=== PATIENT | male | born 1970 | race Caucasian/White ===

== ENCOUNTER 2019-04-16 08:46 | Inpatient (IN) ==
--- NOTE | 2019-04-16 09:18 | EKG Report ---
Test Performed on : 04/16/2019 08:51:40 AM Test Reason : CP Blood Pressure : / mmHG Vent. Rate : 060 BPM Atrial Rate : 060 BPM P-R Int : 178 ms QRS Dur : 110 ms QT Int : 432 ms P-R-T Axes : 040 -73 018 degrees QTc Int : 432 ms Normal sinus rhythm. Left anterior fascicular block Abnormal ECG When compared with ECG of 23-MAR-2018 01:47, No significant change was found Unconfirmed Result
--- NOTE | 2019-04-16 09:22 | PROVIDER DOCUMENTATION ---
HPI-Chest Pain - General Chief Complaint: Chest Pain Stated Complaint: CP Time Seen by Provider: 04/16/19 09:03 Source: patient Allergies/Adverse Reactions: Patient Allergies Allergy/AdvReac Type Severity Reaction Status Date / Time No Known Allergies Allergy Verified 08/14/18 15:10 Home Medications: Home Medication List Medication Instructions Recorded Confirmed Last Taken Type Alprazolam 5 mg PO BID 03/31/15 08/14/18 03/22/18 History Metoprolol [Lopressor] 100 mg PO DAILY 03/31/15 08/14/18 03/22/18 History Albuterol Sulfate [Proair Hfa] 2 ahfu INH PRN PRN 08/14/18 08/14/18 Unknown History Buspirone HCl 1 tab PO DAILY 08/14/18 08/14/18 Unknown History Cyclobenzaprine [Flexeril] 10 mg PO TID #20 tab 08/14/18 Unknown Rx Ibuprofen [Motrin] 800 mg PO Q8H PRN PRN #20 tab 08/14/18 Unknown Rx Prednisone 10 mg PO DIRECTED #9 tab 08/14/18 Unknown Rx - History of Present Illness-CP Nature of Presenting Problem: [id number] presents to the ED with c/o CP on the left side that radiates to his neck and down the left arm. He states that it began last night and has been intermittent all night. He says episodes last 2-5 min each. He states his blood pressure has been elevated. 180s-190s systolic. This morning at 0730 he took his metoprolol 100mg prior to arrival to ER. He denies any CP at this time. He does complain of shoulder pain and swelling, though denies any injury. He states that he has severe panic and anxiety. He is non-ill in appearance. No SOB noted, no diaphoresis noted, mildly hypertensive, SR noted on EKG. Location: reports: substernal, shoulder Chest Pain Radiation: reports: arms (left), neck Quality of Pain: reports: aching Severity in ED: mild Onset/Duration: last night Timing: intermittent Context/Activities at Onset: reports: none Modifying Factors: improves with: nothing Associated Symptoms: reports: denies symptoms Nitro Today/Relief: no nitro taken today Aspirin Treatment Today: no aspirin today Prior Chest Pain/Cardiac Workup: reports: angina. denies: heart attack Similar Symptoms Previously?: Yes Recently Seen Here or By Another Healthcare Provider: Yes Review of Systems - Adult - REVIEW OF SYSTEMS - ADULT Constitutional: reports: no symptoms reported. denies: chills, fever Eyes: reports: no symptoms reported Ears, Nose, Mouth & Throat: reports: no symptoms reported Cardiovascular: reports: see HPI, chest pain. denies: edema, heart murmur, irregular heart rate, palpitations, syncope Respiratory: reports: no symptoms reported. denies: cough, dyspnea on exertion, shortness of breath, wheezing Gastrointestinal: reports: no symptoms reported. denies: abdominal pain, diarrhea, vomiting Genitourinary: reports: no symptoms reported Musculoskeletal: reports: see HPI, joint pain (left shoulder) Integumentary: reports: no symptoms reported Neurological: reports: no symptoms reported Psychiatric: reports: see HPI, anxiety, panic attacks Endocrine: reports: no symptoms reported Hematologic/Lymphatic: reports: no symptoms reported Allergic/Immunologic: reports: no symptoms reported All Other Systems: Reviewed and Negative Past History - Adult - PAST MEDICAL HISTORY-ADULT Review of Records: reports: Old Records Reviewed, Nursing Assessment Review, Medications Reviewed, Social history reviewed & non-contributory. Major Childhood Illnesses: reports: denies history Cardiovascular: reports: HTN Respiratory: reports: sleep apnea Gastrointestinal: reports: denies history Obstetrical/Gynecological: reports: denies history Genitourinary: reports: denies history Musculoskeletal: reports: chronic pain Neurological: reports: denies history Psychiatric: reports: anxiety (with panic attacks), depression Endocrine/Immune: reports: denies history Other Conditions: reports: denies history - PRIOR SURGERIES/PROCEDURES Surgical/Procedure History: reports: other (disectomy) - IMMUNIZATION STATUS Childhood Immunizations: See Nurse Assessment Flu Vaccine: See Nurse Assessment - FAMILY HISTORY Family History: reviewed, not pertinent - SOCIAL HISTORY Smoking: denies Substance Use: denies Living Situation: family Physical Exam-General - PHYSICAL EXAM-ADULT Initial Vital Signs Reviewed: Yes - CONSTITUTIONAL General Appearance: appears well, alert, no apparent distress - EYES Eyes: PERRL/EOMI, pink conjunctivae - HEAD, EARS, NOSE, MOUTH & THROAT HENMT: normocephalic/atraumatic, moist mucous membranes - NECK Neck: non-tender, full range of motion, supple - RESPIRATORY Respiratory: chest non-tender, lungs clear, normal breath sounds - CARDIOVASCULAR Cardiovascular: normal peripheral pulses, regular rate, rhythm, no murmur - GASTROINTESTINAL (ABDOMEN) Abdominal Exam: normal bowel sounds, non tender, soft - LYMPHATIC Lymphatic: no adenopathy - MUSCULOSKELETAL Back Exam: normal inspection, no CVA tenderness Extremity: normal range of motion, non-tender, normal gait, pedal edema (generalized bilateral lower extremities) - SKIN Integumentary: normal color, normal turgor, warm/dry - NEUROLOGIC Neurologic: cognos report developer II-XII nml as tested, grossly normal, no motor/sensory deficits - PSYCHIATRIC Psych/Mental Status: anxious - HEART Score HEART Score: History: Slightly Suspicious HEART Score: Age: 45-65 Years HEART Score: Risk Factors for Atherosclerotic Disease: 1 or 2 Risk Factors HEART Score: Troponin: < or = Normal Limit Progress - PLAN OF CARE/RESULTS Progress/Plan/Lab Results: Vital Signs - 8 hr 04/16/19 08:59 04/16/19 10:00 04/16/19 10:38 Temperature 97.6 F Pulse Rate 61 60 58 L Respiratory Rate 17 16 17 Blood Pressure 156/99 157/91 O2 Sat by Pulse Oximetry 95 93 L 95 Laboratory Results - last 24 hr 04/16/19 04/16/19 04/16/19 09:16 09:28 09:28 WBC RBC Hgb Hct MCV MCH MCHC RDW Std Deviation Plt Count MPV Immature Gran % (Auto) Neut % (Auto) Lymph % (Auto) [place] % (Auto) Eos % (Auto) Baso % (Auto) Immature Gran # (Auto) Neut # (Auto) Lymph # (Auto) [place] # (Auto) Eos # (Auto) Baso # (Auto) Sodium 140 Potassium 4.1 Chloride 101 Carbon Dioxide 25 Anion Gap 14 BUN 9 Creatinine 0.8 Estimated GFR/1.73 m2 > 60 BUN/Creatinine Ratio 11 Glucose 160 H POC Glucose 151 H Calculated Osmolality 282 Calcium 9.1 Magnesium Total Bilirubin 1.73 H AST 44 H ALT 40 Alkaline Phosphatase 48 Creatine Kinase 82 Troponin T < 0.010 Pir-K-Tunynsngtuv Pept Total Protein 7.0 Albumin 4.3 Globulin 2.7 Albumin/Globulin Ratio 1.6 TSH Free T4 04/16/19 04/16/19 04/16/19 09:28 09:28 09:28 WBC 5.87 RBC 5.43 Hgb 18.3 H Hct 51.9 MCV 95.6 MCH 33.7 H MCHC 35.3 RDW Std Deviation 11.6 Plt Count 122 L MPV 11.5 H Immature Gran % (Auto) 0.0 Neut % (Auto) 61.8 Lymph % (Auto) 28.6 [place] % (Auto) 7.3 Eos % (Auto) 2.0 Baso % (Auto) 0.3 Immature Gran # (Auto) 0.00 Neut # (Auto) 3.62 Lymph # (Auto) 1.68 [place] # (Auto) 0.43 Eos # (Auto) 0.12 Baso # (Auto) 0.02 Sodium Potassium Chloride Carbon Dioxide Anion Gap BUN Creatinine Estimated GFR/1.73 m2 BUN/Creatinine Ratio Glucose POC Glucose Calculated Osmolality Calcium Magnesium Total Bilirubin AST ALT Alkaline Phosphatase Creatine Kinase Troponin T Iiq-Y-Xknmanqqyce Pept 90 Total Protein Albumin Globulin Albumin/Globulin Ratio TSH 1.46 Free T4 1.05 04/16/19 09:28 WBC RBC Hgb Hct MCV MCH MCHC RDW Std Deviation Plt Count MPV Immature Gran % (Auto) Neut % (Auto) Lymph % (Auto) [place] % (Auto) Eos % (Auto) Baso % (Auto) Immature Gran # (Auto) Neut # (Auto) Lymph # (Auto) [place] # (Auto) Eos # (Auto) Baso # (Auto) Sodium Potassium Chloride Carbon Dioxide Anion Gap BUN Creatinine Estimated GFR/1.73 m2 BUN/Creatinine Ratio Glucose POC Glucose Calculated Osmolality Calcium Magnesium 2.0 Total Bilirubin AST ALT Alkaline Phosphatase Creatine Kinase Troponin T Gyc-Y-Rgfizxcgyrp Pept Total Protein Albumin Globulin Albumin/Globulin Ratio TSH Free T4 Orders Category Date Time Status Saline Loc NOW Care 04/16/19 10:03 Active cxr [CHEST-2 VIEWS] [RAD] Stat Exams 04/16/19 09:05 Completed CBC WITH ELECTRONIC DIFF [HEME] Stat Lab 04/16/19 09:28 Completed CK PROFILE [SP CHEM] Stat Lab 04/16/19 09:28 Completed COMPREHENSIVE METABOLIC PANEL [CHEM] Stat Lab 04/16/19 09:28 Completed FREE T4 Stat Lab 04/16/19 09:28 Completed MAGNESIUM [CHEM] Stat Lab 04/16/19 09:28 Completed PRO B-NATRIURETIC PEPTIDE Stat Lab 04/16/19 09:28 Completed TROPONIN T Stat Lab 04/16/19 09:28 Completed TSH Stat Lab 04/16/19 09:28 Completed EKG [EKG] Stat Ther 04/16/19 09:04 Draft Echo Spec/Color Doppler Stat Ther 04/16/19 09:54 Ordered Result Diagrams: 04/16/19 09:28 04/16/19 09:28 - REASSESSMENT Reassessment #1 Time Reassessed: 10:43 Status: improving Reassessment Comment: no c/o pain, states he is feeling some better - EKG 1 Time of EKG reading by physician:: 08:51 EKG Read and Signed by:: Gilbert Mooney EKG Interpretation (*Must complete 3 of following elements*): Abnormal Rate: 60 Rhythm: NSR [place]: normal OK Interval: normal (FINDINGS: There is cardiomegaly and pulmonary vascular congestion. There is probably trace interstitial pulmonary edema. No pneumothorax or large pleural effusion. IMPRESSION: Congestive heart failure.) - XRAY 1 XRAY Study: Chest Impression: Abnormal ( FINDINGS: There is cardiomegaly and pulmonary vascular congestion. There is probably trace interstitial pulmonary edema. No pneumothorax or large pleural effusion. IMPRESSION: Congestive heart failure.), See EMR Report - CONSULTS/PCP/HOSPITALIST Notification #1 *Consult/PCP/Hospitalist*: JOSLYN Guadarrama for Dr Carlos Time Discussed: 11:41 Reason/Comments: CHF, CP Consult Disposition: Admit Departure - Departure Date of Disposition Decision: 04/16/19 Time of Disposition Decision: 11:38 DIAGNOSIS: Chest pain Qualifiers: Chest pain type: unspecified Qualified Code(s): R07.9 - Chest pain, unspecified CHF (congestive heart failure) Qualifiers: Heart failure type: unspecified Heart failure chronicity: acute Qualified Code(s): I50.9 - Heart failure, unspecified Disposition: ADMITTED INPATIENT 09 Certified Medical Emergency: Emergent Condition: Critical Additional Freetext Instructions: ED Follow Up Instructions: You have been treated by a care provider in the Emergency Department. These instructions are being provided to you so you can have an understanding of how to care for yourself upon discharge. Upon discharge from the Emergency Department, you are responsible for making arrangements for follow-up care by a physician of your choice. Take all prescribed medications as directed. Return to the Emergency Department immediately for any new or worsening symptoms. You may call the Physician Referral phone number at [phone] to obtain a list of Physicians who are taking new patients. Referrals and Follow-Ups: Neymar Broderick MD [Primary Care Provider] - - Critical Care Note This patient required my direct & personal management of CC.: No Attestation - Physician/ LAM Attestation Patient care was provided by Advanced Practice Provider:: Yes Advanced Practice Provider:: Marciano Mabry Advanced Practice Provider documentation review:: The Mid-level provider documentation, treatment plan and medical decision making was reviewed by the physician who agrees with all treatment and medical decision making by the MLP. The physician spent face to face time with patient:: No Advanced Practice Provider documentation review:: Supervising physician onsite and consulted in the evaluation and care of this patient. The physician did not have a face to face encounter with the patient.
[2019-04-16 09:46] LABS: BASO# 0.02 X1000 (0.0-0.2); BASO% 0.3 % (0.0-0.8); EOS# 0.12 X1000 (0.0-0.7); HEMATOCRIT 51.9 % (42.0-52.0); HEMOGLOBIN 18.3 g/dL (14.0-18.0); LYMPH# 1.68 X1000 (1.2-3.4); LYMPH% 28.6 % (20.5-51.1); MCH 33.7 PG (27-31); MCHC 35.3 g/dL (33-37); MCV 95.6 FL (81-99); MONO# 0.43 X1000 (0.11-0.59); MONO% 7.3 % (1.7-9.3); MPV 11.5 FL (7.4-10.4); NEUT# 3.62 X1000 (1.4-6.5); NEUT% 61.8 % (42.2-75.2); PLT 122 X1000 (130-400); RBC 5.43 XMIL (4.7-6.1); RDW 11.6 % (11.5-14.5); WBC 5.87 X1000 (4.8-10.8)
--- NOTE | 2019-04-16 09:50 | Diag Imaging Result Doc PS360 ---
CHEST-2 VIEWS - 04/16/2019 INDICATION: chest pain COMPARISON: 03/31/2015 FINDINGS: There is cardiomegaly and pulmonary vascular congestion. There is probably trace interstitial pulmonary edema. No pneumothorax or large pleural effusion. IMPRESSION: Congestive heart failure. Electronically signed by Edgar Valdez 04/16/2019 9:48 AM
[2019-04-16 10:18] LABS: AGAP 14; ALB/GLOB RATIO 1.6; ALBUMIN 4.3 g/dL (3.5-5.0); ALKALINE PHOSPHATASE 48 U/L (32-122); BUN 9 mg/dL (8-22); CALCIUM 9.1 mg/dL (8.8-10.2); CHLORIDE 101 mmol/L (98-107); CK PROFILE 82 U/L (24-204); COSMO 282; CREATININE 0.8 mg/dL (0.7-1.2); ESTIMATED GFR > 60; GLUCOSE 160 mg/dL (70-104); GOT 44 U/L (10-34); GPT 40 U/L (10-44); POTASSIUM 4.1 mmol/L (3.5-5.1); SODIUM 140 mmol/L (136-145); TCO2 25 mmol/L (25-35); TOTAL BILIRUBIN 1.73 mg/dL (0.20-1.00)
[2019-04-16 11:16] LABS: FREE T4 1.05 ng/dL (0.93-1.70); TSH 1.46 uIUmL (0.27-4.20)
[2019-04-16] MEDS ORDERED: ZOFRAN IV PRN (13:19)
--- NOTE | 2019-04-16 15:12 | HISTORY AND PHYSICAL ---
PRIMARY CARE PROVIDER: Dr. Neymar Broderick. FEED MILL SUPERVISOR: Dr. Salinas. CHIEF COMPLAINT: Intermittent chest pain and hypertension. HISTORY OF PRESENT ILLNESS: Mr. Genao is a 48-year-old obese male who carries a past medical history of anxiety and hypertension. Reports for over the past week he has had intermittent chest pain on the left side of his arm on the left side of his chest that radiated into his arm up into his neck. He took his blood pressure this morning. It was 199/116. He had feelings of being smothered on Tuesday night, and he was unable to sleep Tuesday or Tuesday. He reported 1 week of diaphoresis with exertion and a dry cough. In the evening when he is talking, he gets more dyspneic and hoarse. He did report some blurry vision this morning that has now resolved. He reports that he has had some anxiety. He has had a lot of stressors with his mom being committed for nervous breakdown. He felt like this may be anxiety, but the chest pain has continued for over a week now. He came to the ED to be assessed as two sets of cardiac enzymes are negative. We will admit him for chest pain rule out, and consult Cardiology and do a stress test in the morning REVIEW OF SYSTEMS: Twelve-point review of systems completely negative except for those mentioned in HPI. PAST MEDICAL HISTORY: 1. Anxiety. 2. Hypertension. PAST SURGICAL HISTORY: 1. Bilateral carpal tunnel release. 2. Back surgery x2. 3. Laparoscopic esophageal myotomy 14 years ago. FAMILY HISTORY: Mother and sister with congestive heart failure. ALLERGIES: No known drug allergies. HOME MEDICATIONS: Metoprolol, BuSpar, Xanax, and ProAir inhaler that he takes for shortness of breath. He has never been diagnosed with asthma. SOCIAL HISTORY: He is not . No children. He lives in [place]. 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 He had been pursuing a teaching degree, however, secondary to anxiety that has been placed on hold. PHYSICAL EXAMINATION: VITAL SIGNS: Temperature is 97.8 degrees, heart rate 60, respirations 21, blood pressure 154/89, and O2 is 97% on room air. GENERAL: Mr. Genao is an anxious-appearing 48-year-old male who is sitting up on the stretcher in no apparent distress. HEENT: Atraumatic, normocephalic. PERRL. NECK: Supple. Trachea midline. CARDIOVASCULAR: S1, S2 appreciated. No murmurs, gallops, or rubs noted. RESPIRATORY: Lung sounds clear bilaterally. Did not appreciate any crackles or wheezes. GI: Obese, soft, nontender, and nondistended. Positive bowel sounds 4 quadrants. EXTREMITIES: Negative for edema. Bilateral pedal pulses were palpable. SKIN: Warm, dry and intact. NEUROLOGIC: No focal deficits noted. DIAGNOSTIC DATA: Chest x-ray reveals congestive heart failure. EKG normal sinus rhythm at 60 beats per minute with a left anterior fascicular block when compared to February of 2018. There was no significant change found. LABORATORY DATA: White count 5, hemoglobin and hematocrit 18 and 51, and platelet count is 122,000. Sodium 140, potassium 4.1, BUN 9, and creatinine 0.8. Blood glucose is 160. Mag is 2.0. T bilirubin 1.73, AST 44, ALT 40. Two sets of troponin's are less than 0.010. ProBNP is 90. ASSESSMENT AND PLAN: 1. Chest pain rule out. We will continue to trend his cardiac enzymes. Two sets have been negative. We will place him on a healthy heart diet. Check his lipid profile. Check hemoglobin A1c. Echocardiogram. Consult Cardiology, NPO after midnight. Do a stress test in the morning. Continue on full dose aspirin. Start a statin. 2. Hyperglycemia. Will check hemoglobin A1c. 3. Anxiety. We will continue his home Klonopin. 4. Hypertension. We will continue his home metoprolol. 5. Transaminitis. We will do an abdominal ultrasound of his right upper quadrant. The patient was complaining of left upper quadrant bubbly sensation. Did not complain of any right upper quadrant pain. 6. Further recommendation to follow physician evaluation, laboratory and diagnostic data. Dictated by JOSLYN Oliveira for Justice Carlos MD cc: MD Neymar Lowery MD Ashish K. Basu, MD MTDD
--- NOTE | 2019-04-16 15:38 | HISTORY AND PHYSICAL ---
ADDENDUM TO HISTORY AND PHYSICAL: SUBJECTIVE: Patient complaining of shortness of breath and to some degree chest tightness. Workup in the ER was consistent with some elevated blood pressure. EKG was unremarkable. His physical exam is pretty unremarkable apart from being obese. He is doing okay otherwise. PHYSICAL EXAMINATION: Cardiac regular rate and rhythm. Breath sounds are clear. ASSESSMENT/PLAN: We are going to rule out serial enzymes pursue echo, stress test, and follow. Also ordered a right upper quadrant he is obese and at risk for failure. This is a [id number] encounter with Chiara Collier. cc: Justice Carlos MD
[2019-04-16] MEDS: LOVENOX SUBQ SCH (15:46)
[2019-04-16] MEDS: KLONOPIN PO SCH (20:53)
[2019-04-16] MEDS: TYLENOL PO PRN (20:53)
--- NOTE | 2019-04-16 23:42 | ECHO REPORT ---
ORDER DATE: 04/16/2019 MEASUREMENTS: Left ventricular end-diastolic diameter 5.2, end systolic diameter 3.3, septal thickness 1.1, posterior wall thickness 1.1, aortic root 3.6, left atrium 4.6. SUMMARY: 1. Technically difficult study due to limited acoustic window quality. Intravenous echo contrast agent Optison was utilized to enhance endocardial definition. 2. Aortic valve is trileaflet and opens normally on 2-dimensional images. Peak gradient across aortic valve is less than 10 mmHg. Mitral and tricuspid valves are without evidence of structural abnormality while pulmonic valve was not well demonstrated. There is trace tricuspid regurgitation. Aortic root is normal in size. 3. Normal left ventricular dimensions suggested on 2-dimensional images. Estimated left ejection fraction appears to be approximately 65%. No regional wall motion abnormalities are evident. Left atrium is mildly enlarged. Right atrium, right ventricle are normal in size with normal right ventricular systolic function. 4. No pericardial effusion. 5. Appearance of inferior vena cava suggests normal central venous pressure. cc: Alvaro Hull MD
[2019-04-17] MEDS: NS 1,000 ML IV SCH ×2 (00:32→19:15)
[2019-04-17] MEDS: PRILOSEC PO SCH (06:10)
[2019-04-17 07:32] LABS: BASO# 0.02 X1000 (0.0-0.2); BASO% 0.4 % (0.0-0.8); EOS# 0.11 X1000 (0.0-0.7); HEMATOCRIT 50.2 % (42.0-52.0); HEMOGLOBIN 17.3 g/dL (14.0-18.0); LYMPH# 2.32 X1000 (1.2-3.4); LYMPH% 42.3 % (20.5-51.1); MCH 33.4 PG (27-31); MCHC 34.5 g/dL (33-37); MCV 96.9 FL (81-99); MONO% 7.3 % (1.7-9.3); MPV 11.4 FL (7.4-10.4); NEUT# 2.64 X1000 (1.4-6.5); PLT 121 X1000 (130-400); RBC 5.18 XMIL (4.7-6.1); RDW 11.6 % (11.5-14.5); WBC 5.49 X1000 (4.8-10.8)
--- NOTE | 2019-04-17 07:45 | Diag Imaging Result Doc PS360 ---
US GB < RUQ (LIMITED) - 04/17/2019 INDICATION: elevated lfts TECHNIQUE: COMPARISON: None FINDINGS: There is severe diffuse fatty change of the liver. No liver masses. The gallbladder, pancreas, and right kidney are normal. Common bile duct measures 5 mm. Aorta, IVC, and main portal vein are patent. No free fluid. IMPRESSION: Severe hepatic steatosis. Electronically signed by Edgar Valdez 04/17/2019 7:42 AM
[2019-04-17 07:50] LABS: AGAP 11; ALB/GLOB RATIO 1.4; ALBUMIN 3.9 g/dL (3.5-5.0); ALKALINE PHOSPHATASE 43 U/L (32-122); BUN 11 mg/dL (8-22); CALCIUM 8.8 mg/dL (8.8-10.2); CHLORIDE 102 mmol/L (98-107); CHOLESTEROL 159 mg/dL (0-200); COSMO 274; CREATININE 0.7 mg/dL (0.7-1.2); ESTIMATED GFR > 60; GLUCOSE 114 mg/dL (70-104); GOT 41 U/L (10-34); GPT 35 U/L (10-44); HDL 30 mg/dL (35-55); LDL 93 mg/dL; MAGNESIUM 2.2 mg/dL (1.5-2.7); POTASSIUM 3.2 mmol/L (3.5-5.1); SODIUM 137 mmol/L (136-145); TCO2 24 mmol/L (25-35); TOTAL BILIRUBIN 1.78 mg/dL (0.20-1.00); TOTAL PROTEIN 6.6 g/dL (6.3-8.3); TRIGLYCERIDES 181 mg/dL (39-160); VLDL 36 mg/dL
[2019-04-17] MEDS ORDERED: LEXISCAN ONE (08:08)
--- NOTE | 2019-04-17 09:47 | EKG Report ---
Test Performed on : 04/17/2019 09:38:36 AM Test Reason : cp Blood Pressure : / mmHG Vent. Rate : 077 BPM Atrial Rate : 077 BPM P-R Int : 176 ms QRS Dur : 118 ms QT Int : 428 ms P-R-T Axes : 060 -66 032 degrees QTc Int : 484 ms Normal sinus rhythm. Left anterior fascicular block Prolonged QT Abnormal ECG When compared with ECG of 16-APR-2019 08:51, (Unconfirmed) No significant change was found Confirmed by Fany JOYNER, Vincent Miller ([id number]) on 04/17/2019 5:31:38 PM
[2019-04-17] MEDS: TYLENOL PO PRN (09:58)
[2019-04-17] MEDS: ASPIRIN PO SCH (09:58)
[2019-04-17] MEDS: BUSPAR PO SCH (09:58)
[2019-04-17] MEDS: LOPRESSOR PO SCH (09:58)
[2019-04-17] MEDS: KLONOPIN PO SCH ×2 (09:58→20:43)
[2019-04-17] MEDS ORDERED: KLOR-CON PO ONE (10:05)
--- NOTE | 2019-04-17 13:25 | PROGRESS NOTE ---
DATE: 04/17/2019 SUBJECTIVE: He still had a little bit of chest pain this morning after the stress test, but that seems better now. OBJECTIVE: Blood pressure 144/81, heart rate 63, respiratory rate of 20, and temperature 97.8 degrees.Cardiovascular: Regular rate and rhythm. Pulmonary: Bilateral breath sounds clear to auscultation. GI: Soft, nontender, and nondistended. Bowel sounds are positive. LABORATORY: White count 5, hemoglobin and hematocrit 17 and 50, and platelets 121,000. Potassium 3.2. T bilirubin 1.7. PROBLEM LIST: 1. Atypical chest pain. We are waiting on stress test results. Cardiology is following, and I appreciate their input. Echo was pretty normal with EF 65%. No wall motion abnormality, and he is ruled out. 2. Hyperglycemia. He does not officially have diabetes, but he may have metabolic syndrome. 3. Elevated liver enzymes, looks like it is related to hepatic steatohepatitis. He seems to be stable from that standpoint. DISPOSITION: I anticipate if his stress test is negative, he can likely go home here shortly hopefully. cc: Justice Carlos MD
--- NOTE | 2019-04-17 14:13 | CONSULTATION ---
DATE OF CONSULTATION: 04/17/2019 IMPRESSION: 1. Chest discomfort, predominantly atypical for myocardial ischemia. No evidence of acute myocardial insult or cardiac enzymes. 2. Previous negative coronary angiography last year for similar chest discomfort. 3. Hypertension. 4. Morbid obesity. 5. Anxiety disorder. RECOMMENDATIONS: 1. Follow up Lexiscan sestamibi study already performed. 2. Weight loss strongly encouraged and advised. 3. Suspect obstructive sleep apnea. Patient would benefit from screening for sleep apnea. This was discussed with him. HISTORY OF PRESENT ILLNESS: This 48-year-old white male with past history of morbid obesity, hypertension and anxiety as well as previous negative coronary angiography last year, was admitted through the emergency room for evaluation of chest pain. He relates that yesterday morning, he was still in bed early when he started to feel some tightness in the left lateral chest. His blood pressure elevated. Symptoms lasted about 15 to 20 minutes. He had some brief recurrences of chest tightness throughout the day yesterday. He also describes difficulty with exertional shortness of breath and diaphoresis. He came to the emergency room and was admitted. Serial troponins have been normal. He is a nonsmoker. He has not required treatment for hypercholesterolemia. He does have anxiety disorder. He also has history of prominent snoring. He is not aware of sleep apnea. PAST MEDICAL HISTORY: 1. Morbid obesity. 2. Hypertension. 3. Previous negative coronary angiography last year. 4. Anxiety disorder. PAST SURGICAL HISTORY: Includes bilateral carpal tunnel release, 2 previous back surgeries, and laparoscopic esophageal myotomy 14 years ago. ALLERGIES: He has no known drug allergies. MEDICATIONS PRIOR TO ADMISSION: As listed. 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 He does not smoke. FAMILY HISTORY: Negative for premature coronary disease. REVIEW OF SYSTEMS: Pulmonary: Negative beyond history of present illness. Constitutional: Negative beyond history of present illness. Gastrointestinal: Negative beyond history of present illness. Remainder of review of systems negative/noncontributory beyond history of present illness with 14 total systems reviewed. PHYSICAL EXAMINATION: General: This is a morbidly obese adult male, in no distress on room air. Vital signs: Blood pressure 144/81, heart rate 63 and regular. Oxygen saturation 95% on room air. HEENT: Extraocular movements appear intact. Mucous membranes are moist. Neck: Supple without jugular venous distention. There are no carotid bruits. Chest: Clear to auscultation bilaterally. Cardiac: Regular rate and rhythm without appreciable murmur or gallop. Abdomen: Soft. Bowel sounds are normal. Extremities: Without edema. Neurologic: Reveals him to be alert and fully oriented. Speech is fluent. He moves all 4 extremities equally well. LABORATORY DATA: Includes a white blood cell count of 5.49, hematocrit 50.2, hemoglobin 17.3, platelet count 121,000. Sodium 137, potassium 3.2, chloride 102, carbon dioxide 24, BUN 11, creatinine 0.7, glucose 114. Initial troponin less than 0.01. Followup troponin less 0.01. Pro B-natriuretic peptide level 90. A 12 lead EKG demonstrates normal sinus rhythm and left anterior fascicular block. cc: Alvaro Hull MD
--- NOTE | 2019-04-17 15:40 | Diag Imaging Result Document ---
PROCEDURE NAME: MYOCARDIAL PERF SCAN, STR/REST - 04/17/2019 PROCEDURE: Lexiscan Cardiolite stress test. DESCRIPTION OF PROCEDURE IN DETAIL: Lexiscan was infused per standard protocol. There was no chest pain. Stress electrocardiogram was negative for ischemia. Following Lexiscan infusion, Cardiolite was injected. Total of 15.3 mCi of Cardiolite was injected for the rest phase; 45.8 mCi of Cardiolite was injected for the stress phase. Images revealed significant diaphragmatic and chest wall attenuation. Normal left ventricular cavity size. There is low-grade reversible defect in the inferior wall with normal wall motion. However, this is likely to represent attenuation defect, low probability of ischemia. There is low-grade reversibility. Left ventricular ejection fraction by gated SPECT was 73%. CONCLUSIONS: 1. No chest pain. 2. Negative Lexiscan stress electrocardiogram. 3. Myocardial perfusion images revealed low-grade reversible perfusion defect in the inferior wall associated with significant diaphragmatic, as well as chest wall attenuation. This could represent attenuation defect. Left ventricular ejection fraction by gated SPECT was 73%. Wall motion was normal. cc: Aaron Salinas MD
[2019-04-17] MEDS: LOVENOX SUBQ SCH (19:14)
[2019-04-18] MEDS: NS 1,000 ML IV SCH ×2 (03:34→08:45)
[2019-04-18] MEDS: PRILOSEC PO SCH (06:21)
[2019-04-18] MEDS: ASPIRIN PO SCH (08:47)
[2019-04-18] MEDS: BUSPAR PO SCH (08:47)
[2019-04-18] MEDS: LOPRESSOR PO SCH (08:47)
[2019-04-18] MEDS: KLONOPIN PO SCH (08:47)
[2019-04-18 11:00] VITALS: BP 160/94
[2019-04-18] MEDS ORDERED: COZAAR PO SCH (12:30)
[2019-04-18] MEDS ORDERED: PNEUMOVAX 23 IM ONE (14:43)
[2019-04-18] MEDS: LOVENOX SUBQ SCH (14:47)
--- NOTE | 2019-04-18 20:50 | DISCHARGE SUMMARY ---
ADMISSION DATE: 04/16/2019 DISCHARGE DATE: 04/18/2019 DISCHARGE DIAGNOSES: 1. Atypical chest pain, possibly gastroesophageal reflux/gastritis. 2. Hepatic steatosis. 3. Hyperglycemia with possible metabolic syndrome. 4. Hypertension. CONSULTATIONS: Cardiology, Dr. Alvaro Hull. HISTORY OF PRESENT ILLNESS: Briefly, this is a 48-year-old male with a history of anxiety and depression, presenting with chest pain. He was placed on observation for chest pain. Cardiology was consulted. He had gotten a stress test which showed a questionable low-grade reversible defect which may be diaphragmatic attenuation. Dr. Hull reviewed the images and felt that it was likely diaphragmatic attenuation. He had an echo done too, which showed an EF of 65% with no wall motion abnormalities. He had an abdominal ultrasound which showed steatohepatitis, but the gallbladder was intact. He was felt stable for discharge. After review, we adjusted his blood pressure medicine. He was placed on losartan. DISCHARGE MEDICATIONS: Buspirone 10 daily, Klonopin 2 b.i.d., Lopressor 100 daily, ProAir, Cozaar 25 daily. DISCHARGE CONDITION: Stable. FOLLOWUP: Follow up with his PCP, Dr. Neymar Broderick, for blood pressure check. Follow up with Dr. Hull. If persistent issues, he may need a GI consult. cc: Justice Carlos MD
== END 2019-04-18 15:28 | disposition home or self-care (01) | DRG 392 ==
LOC: ED 08:46 → 3N 12:20
PROVIDERS: ATTEND Internal Medicine
CPT/HCPCS: 71020; 71046; 76705; 78452; 80053; 80061; 82550; 82948; 83036; 83735; 83880; 84439; 84443; 84484; 85025; 90732; 93005; 93010; 93017; 93306; 94760; 94761; 99285; A9270; A9500; C8929; J1650; J2785; J7030; Q9957; XXXXX

== ENCOUNTER 2019-09-24 11:07 | Inpatient (IN) ==
[2019-09-24] MEDS ORDERED: ZOFRAN IV ONE (11:22)
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
--- NOTE | 2019-09-24 11:42 | EKG Report ---
Test Performed on : 09/24/2019 11:24:04 AM Test Reason : SOB Blood Pressure : / mmHG Vent. Rate : 074 BPM Atrial Rate : 074 BPM P-R Int : 182 ms QRS Dur : 106 ms QT Int : 394 ms P-R-T Axes : 062 -39 042 degrees QTc Int : 437 ms Normal sinus rhythm. Left axis deviation Abnormal ECG When compared with ECG of 17-MAY-2019 17:06, Sinus rhythm. has replaced Atrial flutter. Vent. rate has decreased BY 43 BPM Borderline criteria for Anterior infarct are no longer present ST no longer depressed in Inferior leads ST no longer depressed in Anterolateral leads Unconfirmed Result
[2019-09-24 11:52] LABS: BASO# 0.04 X1000 (0.0-0.2); BASO% 0.8 % (0.0-0.8); EOS# 0.19 X1000 (0.0-0.7); HEMATOCRIT 46.2 % (42.0-52.0); HEMOGLOBIN 15.3 g/dL (14.0-18.0); IMM GRAN# 0.03 X1000 (0.0-0.04); IMM GRAN% 0.6 % (0.0-0.5); LYMPH# 1.35 X1000 (1.2-3.4); LYMPH% 28.4 % (20.5-51.1); MCH 34.3 PG (27-31); MCHC 33.1 g/dL (33-37); MCV 103.6 FL (81-99); MONO# 0.69 X1000 (0.11-0.59); MONO% 14.5 % (1.7-9.3); MPV 10.3 FL (7.4-10.4); NEUT# 2.45 X1000 (1.4-6.5); NEUT% 51.7 % (42.2-75.2); PLT 138 X1000 (130-400); RBC 4.46 XMIL (4.7-6.1); RDW 12.8 % (11.5-14.5); WBC 4.75 X1000 (4.8-10.8)
--- NOTE | 2019-09-24 12:04 | Diag Imaging Result Doc PS360 ---
CHEST-2 VIEWS - 09/24/2019 INDICATION: cough, SOB COMPARISON: 05/17/2019 FINDINGS: There may be pneumomediastinum. There is cardiomegaly and severe pulmonary vascular congestion. There is hazy infiltrate throughout the left lung base. There is a trace left pleural effusion. There are two displaced rib fractures at the lateral left lung base inferiorly. IMPRESSION: 1. Displaced rib fractures at the lateral left lung base. 2. Left basilar infiltrate compatible with pneumonia. Trace left pleural effusion. 3. Possible pneumomediastinum. 4. Consider a chest CT for further evaluation. Electronically signed by Edgar Valdez 09/24/2019 12:02 PM
[2019-09-24 12:17] LABS: AGAP 11; ALB/GLOB RATIO 1.4; ALBUMIN 3.6 g/dL (3.5-5.0); ALKALINE PHOSPHATASE 52 U/L (32-122); BUN 9 mg/dL (8-22); CALCIUM 8.8 mg/dL (8.8-10.2); CHLORIDE 103 mmol/L (98-107); COSMO 281; CREATININE 0.7 mg/dL (0.7-1.2); ESTIMATED GFR > 60; GLUCOSE 121 mg/dL (70-104); GOT 68 U/L (10-34); GPT 29 U/L (10-44); POTASSIUM 4.5 mmol/L (3.5-5.1); SODIUM 141 mmol/L (136-145); TCO2 27 mmol/L (25-35); TOTAL BILIRUBIN 1.06 mg/dL (0.20-1.00); TOTAL PROTEIN 6.2 g/dL (6.3-8.3)
[2019-09-24] MEDS ORDERED: NS 1,000 ML IV ONE (12:22)
[2019-09-24] MEDS ORDERED: ROCEPHIN 2 GM in NS 50 ML IV ONE (12:22)
[2019-09-24] MEDS ORDERED: ZITHROMAX 500 MG/NS 500 MG/250 ML IVPB IV ONE (12:22)
[2019-09-24] MEDS ORDERED: DUONEB (A & A) INH ONE (13:12)
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
[2019-09-24] MEDS ORDERED: TYLENOL PO PRN (16:14)
[2019-09-24] MEDS ORDERED: BENTYL PO PRN (17:45)
[2019-09-24] MEDS ORDERED: ATARAX PO PRN (17:45)
[2019-09-24] MEDS ORDERED: SALINE LOCK IV FLUID XX ONE (17:45)
[2019-09-24] MEDS ORDERED: ROBAXIN PO PRN (17:45)
[2019-09-24] MEDS: M.V.I.-12 10 ML, FOLIC ACID 1 MG, MAGNESIUM SULFATE 1 GM, THIAMINE 100 MG in NS 1,000 ML IV SCH (18:22)
[2019-09-24] MEDS: DUONEB (A & A) INH SCH ×2 (19:16→23:03)
[2019-09-24] MEDS ORDERED: KLONOPIN PO SCH (21:00)
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
[2019-09-24] MEDS: LIBRIUM PO SCH (21:38)
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
[2019-09-25] MEDS: KLONOPIN PO SCH ×3 (01:06→19:59)
[2019-09-25] MEDS: DUONEB (A & A) INH SCH ×6 (03:35→23:10)
[2019-09-25 05:53] LABS: BASO# 0.02 X1000 (0.0-0.2); BASO% 0.6 % (0.0-0.8); EOS# 0.21 X1000 (0.0-0.7); EOS% 5.9 % (0.0-10.0); HEMATOCRIT 42.8 % (42.0-52.0); HEMOGLOBIN 13.9 g/dL (14.0-18.0); LYMPH# 1.09 X1000 (1.2-3.4); LYMPH% 30.9 % (20.5-51.1); MCH 34.4 PG (27-31); MCHC 32.5 g/dL (33-37); MCV 105.9 FL (81-99); MONO# 0.49 X1000 (0.11-0.59); MONO% 13.9 % (1.7-9.3); MPV 10.1 FL (7.4-10.4); NEUT# 1.72 X1000 (1.4-6.5); NEUT% 48.7 % (42.2-75.2); PLT 131 X1000 (130-400); RBC 4.04 XMIL (4.7-6.1); RDW 13.3 % (11.5-14.5); WBC 3.53 X1000 (4.8-10.8)
[2019-09-25 06:29] LABS: AGAP 11; ALB/GLOB RATIO 1.2; ALBUMIN 3.4 g/dL (3.5-5.0); ALKALINE PHOSPHATASE 48 U/L (32-122); BUN 9 mg/dL (8-22); CALCIUM 8.1 mg/dL (8.8-10.2); CHLORIDE 104 mmol/L (98-107); COSMO 280; CREATININE 0.6 mg/dL (0.7-1.2); ESTIMATED GFR > 60; GLUCOSE 137 mg/dL (70-104); GOT 64 U/L (10-34); GPT 28 U/L (10-44); POTASSIUM 3.8 mmol/L (3.5-5.1); SODIUM 140 mmol/L (136-145); TCO2 25 mmol/L (25-35); TOTAL BILIRUBIN 0.87 mg/dL (0.20-1.00); TOTAL PROTEIN 6.3 g/dL (6.3-8.3)
[2019-09-25] MEDS: LIBRIUM PO SCH ×4 (06:47→18:28)
--- NOTE | 2019-09-25 07:47 | Diag Imaging Result Doc PS360 ---
CHEST-2 VIEWS - 09/25/2019 INDICATION: Pneumonia, ptx, pleural effusion COMPARISON: 09/24/2019 FINDINGS: There is slight worsening infiltrate in the left lung base. There are no other changes from prior. IMPRESSION: Worsening infiltrate in the left lung base. Electronically signed by Edgar Valdez 09/25/2019 7:45 AM
[2019-09-25] MEDS: BUSPAR PO SCH (08:37)
[2019-09-25] MEDS: LOPRESSOR PO SCH (08:37)
[2019-09-25] MEDS: COZAAR PO SCH (08:37)
[2019-09-25] MEDS: EFFEXOR PO SCH (08:37)
[2019-09-25] MEDS ORDERED: VANCOMYCIN IV PER PHARMACY MISC SCH (09:00)
[2019-09-25] MEDS: MAXIPIME 1 GM in NS 50 ML IV SCH ×2 (09:42→17:30)
[2019-09-25] MEDS: VANCOMYCIN 2,000 MG in NS 500 ML IV SCH ×2 (11:02→21:55)
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
[2019-09-25] MEDS ORDERED: ROCEPHIN 1 GM in NS 50 ML IV SCH (13:00)
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
--- NOTE | 2019-09-25 15:06 | ED EKG INTERP ---
This chart was entered by Belle Gaines Scribe, acting as scribe for Gilbert Mooney MD. EKG Interpretation - EKG Time of EKG reading by physician:: 11:24 EKG Read and Signed by:: Gilbert Mooney EKG Interpretation (*Must complete 3 of following elements*): Abnormal Rate: 74 Rhythm: NSR [place]: left QRS: normal Attestation - Physician/ LAM Attestation Patient care was provided by Advanced Practice Provider:: No The physician spent face to face time with patient:: Yes Advanced Practice Provider documentation review:: Supervising physician onsite and consulted in the evaluation and care of this patient. The physician did have a face to face encounter with the patient. This chart was documented by the indicated scribe, (B[place]aines Scribe) and accurately reflects the services I performed and decisions made by me, Gilbert Mooney MD, as attested by the provider's signature.
[2019-09-25] MEDS: MORPHINE IV PRN ×3 (15:39→23:29)
[2019-09-25 16:09] LABS: UR AMPHETAMINES QUAL NONE DETECTED (NONE DETECT); UR BARBITUATES QUAL NONE DETECTED (NONE DETECT); UR BENZODIAZEPIN QUAL PRESUMPTIVE POSITIVE (NONE DETECT); UR CANNABINOIDS QUAL PRESUMPTIVE POSITIVE (NONE DETECT); UR COCAINE QUAL NONE DETECTED (NONE DETECT); UR METHADONE QUAL NONE DETECTED (NONE DETECT); UR OPIATES QUAL NONE DETECTED (NONE DETECT); UR OXYCODONE QUAL NONE DETECTED (NONE DETECT); UR PCP QUAL NONE DETECTED (NONE DETECT)
[2019-09-25] MEDS: M.V.I.-12 10 ML, FOLIC ACID 1 MG, MAGNESIUM SULFATE 1 GM, THIAMINE 100 MG in NS 1,000 ML IV SCH (18:27)
[2019-09-26] MEDS: LIBRIUM PO SCH ×3 (02:35→09:22)
[2019-09-26] MEDS: MAXIPIME 1 GM in NS 50 ML IV SCH ×3 (02:35→17:04)
[2019-09-26] MEDS: MORPHINE IV PRN ×2 (02:35→07:02)
[2019-09-26] MEDS: DUONEB (A & A) INH SCH ×5 (03:42→19:58)
[2019-09-26 06:15] LABS: BASO# 0.02 X1000 (0.0-0.2); BASO% 0.6 % (0.0-0.8); EOS# 0.15 X1000 (0.0-0.7); EOS% 4.5 % (0.0-10.0); HEMATOCRIT 42.5 % (42.0-52.0); HEMOGLOBIN 13.6 g/dL (14.0-18.0); LYMPH# 1.03 X1000 (1.2-3.4); LYMPH% 31.2 % (20.5-51.1); MCH 34.4 PG (27-31); MCV 107.6 FL (81-99); MONO# 0.41 X1000 (0.11-0.59); MONO% 12.4 % (1.7-9.3); MPV 10.4 FL (7.4-10.4); NEUT# 1.69 X1000 (1.4-6.5); NEUT% 51.3 % (42.2-75.2); PLT 138 X1000 (130-400); RBC 3.95 XMIL (4.7-6.1); RDW 13.1 % (11.5-14.5)
[2019-09-26 06:28] LABS: AGAP 10; ALB/GLOB RATIO 1.2; ALBUMIN 3.3 g/dL (3.5-5.0); ALKALINE PHOSPHATASE 50 U/L (32-122); BUN 6 mg/dL (8-22); CALCIUM 8.3 mg/dL (8.8-10.2); CHLORIDE 103 mmol/L (98-107); COSMO 277; CREATININE 0.6 mg/dL (0.7-1.2); ESTIMATED GFR > 60; GLUCOSE 124 mg/dL (70-104); GOT 101 U/L (10-34); GPT 34 U/L (10-44); POTASSIUM 4.5 mmol/L (3.5-5.1); SODIUM 139 mmol/L (136-145); TCO2 26 mmol/L (25-35); TOTAL BILIRUBIN 0.86 mg/dL (0.20-1.00); TOTAL PROTEIN 6.1 g/dL (6.3-8.3)
[2019-09-26 06:43] LABS: EOS 6 % (1-10); LYMPHS 24 % (21-51); MONO 14 % (1-9); SEGS 54 % (42-75)
--- NOTE | 2019-09-26 08:20 | Diag Imaging Result Doc PS360 ---
EXAM: CHEST-2 VIEWS HISTORY: hypoxia TECHNIQUE: Two views COMPARISON: 09/25/2019 FINDINGS: The heart remains enlarged. There is a small left pleural effusion with left basilar atelectasis and/or infiltrates. There is also mild pulmonary edema. There are several left lower rib fractures. No pneumothorax. The overall appearance of the chest is similar to the prior exam. IMPRESSION: Stable chest Electronically signed by Vernon Acosta 09/26/2019 8:18 AM
[2019-09-26] MEDS: KLONOPIN PO SCH ×2 (08:31→21:22)
[2019-09-26] MEDS: LOPRESSOR PO SCH (08:31)
[2019-09-26] MEDS: COZAAR PO SCH (08:31)
[2019-09-26] MEDS: BUSPAR PO SCH (08:31)
[2019-09-26] MEDS: EFFEXOR PO SCH (08:32)
[2019-09-26] MEDS: ATIVAN IV PRN ×4 (08:39→23:17)
[2019-09-26] MEDS: VANCOMYCIN 2,000 MG in NS 500 ML IV SCH (10:21)
[2019-09-26] MEDS: NORCO-7.5 PO PRN ×3 (12:26→23:49)
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
[2019-09-26] MEDS: DOXYCYCLINE PO SCH (21:22)
[2019-09-26] MEDS: AUGMENTIN PO SCH (21:22)
[2019-09-27] MEDS: ATIVAN IV PRN ×3 (04:26→13:25)
[2019-09-27] MEDS: DUONEB (A & A) INH SCH ×3 (04:54→07:51)
[2019-09-27 07:39] LABS: BASO# 0.04 X1000 (0.0-0.2); BASO% 1.1 % (0.0-0.8); EOS# 0.21 X1000 (0.0-0.7); HEMATOCRIT 43.1 % (42.0-52.0); HEMOGLOBIN 14.1 g/dL (14.0-18.0); LYMPH# 1.02 X1000 (1.2-3.4); MCH 34.7 PG (27-31); MCHC 32.7 g/dL (33-37); MCV 106.2 FL (81-99); MONO# 0.38 X1000 (0.11-0.59); MONO% 10.8 % (1.7-9.3); MPV 10.7 FL (7.4-10.4); NEUT# 1.87 X1000 (1.4-6.5); NEUT% 53.1 % (42.2-75.2); PLT 155 X1000 (130-400); RBC 4.06 XMIL (4.7-6.1); RDW 12.8 % (11.5-14.5); WBC 3.52 X1000 (4.8-10.8)
[2019-09-27 07:51] LABS: AGAP 13; ALB/GLOB RATIO 1.4; ALBUMIN 3.8 g/dL (3.5-5.0); ALKALINE PHOSPHATASE 57 U/L (32-122); BUN 6 mg/dL (8-22); CALCIUM 8.7 mg/dL (8.8-10.2); CHLORIDE 100 mmol/L (98-107); COSMO 278; CREATININE 0.6 mg/dL (0.7-1.2); ESTIMATED GFR > 60; GLUCOSE 121 mg/dL (70-104); GOT 105 U/L (10-34); GPT 47 U/L (10-44); POTASSIUM 4.1 mmol/L (3.5-5.1); SODIUM 140 mmol/L (136-145); TCO2 27 mmol/L (25-35); TOTAL BILIRUBIN 0.89 mg/dL (0.20-1.00); TOTAL PROTEIN 6.6 g/dL (6.3-8.3)
[2019-09-27] MEDS: NORCO-7.5 PO PRN ×2 (08:39→14:31)
[2019-09-27 08:59] LABS: PHOSPHORUS 3.7 mg/dL (2.7-4.5)
[2019-09-27] MEDS ORDERED: THERA M PLUS PO SCH (09:00)
[2019-09-27] MEDS ORDERED: VITAMIN B-1 PO SCH (09:00)
--- NOTE | 2019-09-27 09:12 | EKG Report ---
Test Performed on : 09/27/2019 08:58:33 AM Test Reason : Vtach Blood Pressure : / mmHG Vent. Rate : 083 BPM Atrial Rate : 083 BPM P-R Int : 182 ms QRS Dur : 112 ms QT Int : 380 ms P-R-T Axes : 047 -26 035 degrees QTc Int : 446 ms Normal sinus rhythm. Normal ECG When compared with ECG of 24-SEP-2019 11:24, (Unconfirmed) No significant change was found Confirmed by Santana JOYNER, Sudhir ([id number]) on 09/28/2019 11:35:03 AM
[2019-09-27] MEDS: AUGMENTIN PO SCH (09:14)
[2019-09-27] MEDS: DOXYCYCLINE PO SCH (09:14)
[2019-09-27] MEDS: BUSPAR PO SCH (09:14)
[2019-09-27] MEDS: COZAAR PO SCH (09:15)
[2019-09-27] MEDS: LOPRESSOR PO SCH (09:16)
[2019-09-27] MEDS: EFFEXOR PO SCH (09:17)
[2019-09-27] MEDS: KLONOPIN PO SCH (09:27)
[2019-09-27 11:26] VITALS: BP 135/84
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
== END 2019-09-27 16:16 | disposition home or self-care (01) | DRG 194 ==
LOC: ED 11:07 → EDIPHOLD 16:30 → 2N 09-25 18:46 → 4N 09-26 22:58
PROVIDERS: ATTEND Internal Medicine

== ENCOUNTER 2019-12-10 10:23 | Inpatient (IN) ==
[2019-12-10] MEDS ORDERED: ASPIRIN PO ONE (10:37)
[2019-12-10] MEDS ORDERED: M.V.I.-12 10 ML, FOLIC ACID 1 MG, MAGNESIUM SULFATE 1 GM, THIAMINE 100 MG in NS 1,000 ML IV ONE (11:08)
--- NOTE | 2019-12-10 11:08 | EKG Report ---
Test Performed on : 12/10/2019 10:50:38 AM Test Reason : chest pain Blood Pressure : / mmHG Vent. Rate : 072 BPM Atrial Rate : 072 BPM P-R Int : 190 ms QRS Dur : 116 ms QT Int : 396 ms P-R-T Axes : 004 -54 025 degrees QTc Int : 433 ms Normal sinus rhythm. Left anterior fascicular block Abnormal ECG When compared with ECG of 21-OCT-2019 10:58, (Unconfirmed) No significant change was found Unconfirmed Result
[2019-12-10 11:13] LABS: BASO# 0.03 X1000 (0.0-0.2); BASO% 0.6 % (0.0-0.8); EOS# 0.08 X1000 (0.0-0.7); EOS% 1.7 % (0.0-10.0); HEMATOCRIT 50.6 % (42.0-52.0); HEMOGLOBIN 17.1 g/dL (14.0-18.0); LYMPH# 1.71 X1000 (1.2-3.4); LYMPH% 36.7 % (20.5-51.1); MCH 33.7 PG (27-31); MCHC 33.8 g/dL (33-37); MCV 99.8 FL (81-99); MONO# 0.36 X1000 (0.11-0.59); MONO% 7.7 % (1.7-9.3); MPV 10.8 FL (7.4-10.4); NEUT# 2.48 X1000 (1.4-6.5); NEUT% 53.3 % (42.2-75.2); PLT 147 X1000 (130-400); RBC 5.07 XMIL (4.7-6.1); RDW 12.2 % (11.5-14.5); WBC 4.66 X1000 (4.8-10.8)
--- NOTE | 2019-12-10 11:18 | Diag Imaging Result Doc PS360 ---
CHEST-2 VIEWS - 12/10/2019 INDICATION: sob COMPARISON: 10/21/2019 FINDINGS: There is cardiomegaly and pulmonary vascular congestion. No definite edema. No pneumothorax or pleural effusion. IMPRESSION: Cardiomegaly and significant pulmonary vascular congestion. Electronically signed by Edgar Valdez 12/10/2019 11:16 AM
[2019-12-10 11:21] LABS: INR 1.23; PROTIME 15.7 Seconds (11.0-16.0); PTT 29.7 Seconds (22.3-41.8)
[2019-12-10 11:34] LABS: AGAP 18; ALB/GLOB RATIO 1.2; ALBUMIN 3.8 g/dL (3.5-5.0); ALKALINE PHOSPHATASE 68 U/L (32-122); BUN 7 mg/dL (8-22); CALCIUM 8.6 mg/dL (8.8-10.2); CHLORIDE 100 mmol/L (98-107); CK PROFILE 84 U/L (24-204); COSMO 276; CREATININE 0.7 mg/dL (0.7-1.2); ESTIMATED GFR > 60; GLUCOSE 136 mg/dL (70-104); GOT 42 U/L (10-34); GPT 38 U/L (10-44); POTASSIUM 3.9 mmol/L (3.5-5.1); SODIUM 138 mmol/L (136-145); TCO2 20 mmol/L (25-35); TOTAL BILIRUBIN 0.75 mg/dL (0.20-1.00); TOTAL PROTEIN 6.9 g/dL (6.3-8.3)
--- NOTE | 2019-12-10 11:39 | Diag Imaging Result Doc PS360 ---
HAND COMPLETE RIGHT - 12/10/2019 INDICATION: TENDER PAIN LATERAL HAND TECHNIQUE: Three views COMPARISON: 11/28/2019 FINDINGS: There is no fracture or subluxation. No joint form body. There is abnormal sclerosis of the lunate bone compatible with chronic avascular necrosis. Joint spaces are overall preserved. IMPRESSION: Chronic avascular necrosis of the lunate. Electronically signed by Edgar Valdez 12/10/2019 11:37 AM
[2019-12-10 12:03] LABS: URINE SOURCE CLEAN CATCH
[2019-12-10 12:07] LABS: BILIRUBIN URINE NEGATIVE (NEGATIVE); BLOOD URINE NEGATIVE (NEGATIVE); COLOR YELLOW; GLUCOSE URINE NEGATIVE (NEGATIVE); KETONE URINE 20 mg/dL (NEGATIVE); LEUKOCYTES URINE NEGATIVE (NEGATIVE); NITRITE URINE NEGATIVE (NEGATIVE); PH URINE 7.5; PROTEIN URINE TRACE mg/dL (NEGATIVE); SP GRAVITY URINE 1.018; TURBIDITY URINE CLEAR (CLEAR); UR EPITHELIAL CELLS <10 /HPF (<10); URINE BACTERIA NEGATIVE /HPF; URINE RBC <10 /HPF (<10); URINE WBC <10 /HPF (<10); UROBILINOGEN URINE NORMAL (NORMAL)
[2019-12-10 12:48] LABS: UR AMPHETAMINES QUAL NONE DETECTED (NONE DETECT); UR BARBITUATES QUAL NONE DETECTED (NONE DETECT); UR BENZODIAZEPIN QUAL NONE DETECTED (NONE DETECT); UR CANNABINOIDS QUAL NONE DETECTED (NONE DETECT); UR COCAINE QUAL NONE DETECTED (NONE DETECT); UR METHADONE QUAL NONE DETECTED (NONE DETECT); UR OPIATES QUAL NONE DETECTED (NONE DETECT); UR OXYCODONE QUAL NONE DETECTED (NONE DETECT); UR PCP QUAL NONE DETECTED (NONE DETECT)
[2019-12-10] MEDS ORDERED: ATIVAN IV ONE (13:14)
[2019-12-10] MEDS ORDERED: NS 1,000 ML IV ONE (13:14)
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
[2019-12-10] MEDS ORDERED: BENTYL PO PRN (14:17)
[2019-12-10] MEDS ORDERED: ROBAXIN PO PRN (14:17)
[2019-12-10] MEDS: LIBRIUM PO SCH ×2 (15:41→21:08)
[2019-12-10] MEDS ORDERED: LASIX PO ONE (16:10)
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
[2019-12-11] MEDS: LIBRIUM PO SCH ×4 (01:26→21:29)
--- NOTE | 2019-12-11 07:10 | ORTHOPAEDICS CONSULTATION ---
DATE: 12/10/2019 SERVICE: Orthopedic Surgery. CONSULT FROM: Dr. Moya REASON FOR CONSULTATION: Right wrist pain. PAST MEDICAL HISTORY: 1. Anxiety. 2. Hypertension. 3. Alcoholism. 4. Obstructive sleep apnea. 5. Chronic pain. PAST SURGICAL HISTORY: 1. Bilateral carpal tunnel release. 2. Lumbar spine surgery. 3. Laparoscopic esophageal myotomy. MEDICATIONS: 1. Metoprolol. 2. Buspirone. 3. Albuterol. 4. Clonazepam. 5. Losartan. The patient states he has not been taking his home medications prior to this admission. ALLERGIES: No known drug allergies. 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 He is a former smoker, however, quit about 20 years ago. He has excessive alcohol intake, drinking about 1 liter of bourbon a day. He denies any drug use. He is currently homeless and living in his car. FAMILY HISTORY: Noncontributory. REVIEW OF SYSTEMS: A 10-point review of systems is negative other than what is listed in History of Present Illness. CHIEF COMPLAINT: Right wrist pain. HISTORY OF PRESENT ILLNESS: Mr. Genao is a 49-year-old gentleman who presented to [facility] with complaints of anxiety, shortness of breath, and symptoms of alcohol withdrawal. He was admitted for DT prophylaxis and monitoring. He is also complaining of some wrist pain that has been going on for about 3 to 4 weeks and Orthopedic Surgery was thus consulted. The patient denies any falls, trauma, or other acute inciting events. He denies any pain in the wrist prior to this. He states the pain is located over the dorsal ulnar aspect of the wrist and is worse with range of motion. He also reports some numbness and burning in his 4th and 5th fingers that will occasionally wake him up at night. He has not had any treatment for this in the past. He reports some neck pain, however, denies any obvious radiating symptoms from his neck down into his hand. He is right-hand dominant. He is not diabetic. PHYSICAL EXAMINATION: General: Mr. Genao is a 49-year-old male who appears well nourished, well developed, and in no acute distress. Patient is morbidly obese. He is awake, alert, oriented x3. He is very polite and cooperative during examination. Vital Signs: Temperature 97.5 degrees Fahrenheit, heart rate 71, blood pressure 152/85, and O2 saturation 100% on room air. HEENT: Normocephalic and atraumatic. Respiratory: Nonlabored breathing. Cardiovascular: Regular rate and rhythm. Extremities: Examination of right upper extremity shows skin intact. Patient has a healing eschar over the dorsal aspect of his wrist from removal of a piece of glass in the ER a couple weeks ago. No purulence or drainage or erythema around this area. Nontender to palpation around this area. He has tenderness to palpation over his extensor tendons of the 4th and 5th digit over the dorsal aspect of the ulnar wrist joint. He is nontender over his radiocarpal joint. He has no pain with wrist flexion, extension, ulnar or radial deviation. He has good range of motion of the wrist. He is able to make a composite fist. All flexor and extensor tendons are intact. He has some baseline numbness with 1/2 sensation in his ulnar nerve distribution. He has a positive Tinel's over his cubital tunnel. Negative Spurling's bilaterally. Negative Tinel's at the carpal tunnel. He has no signs of thenar or hypothenar atrophy. Motor is otherwise intact in the AIN, PIN, and ulnar nerve distribution. Sensation intact to light touch in the median, radial, and axillary nerves. Radial pulse is palpable and equal bilaterally. IMAGING: AP, lateral, and oblique views of the right hand were obtained and reviewed, demonstrating no fracture or dislocation. Patient does have diffuse sclerosis through his lunate with some cystic formation. No signs of lunate collapse at this time. Findings consistent with Kienbock's disease. He has 3 mm of ulnar negative variance. LABORATORY DATA: White count 4.7, hematocrit 51, platelets of 147,000. ASSESSMENT: A 49-year-old male with right wrist pain and burning, likely secondary to extensor tendinitis of the 4th and 5th digits, as well as cubital tunnel syndrome. PLAN: 1. A long discussion was had with the patient regarding the diagnosis and treatment options. 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 He is asymptomatic from this and denies any prior wrist pain with this. I did discuss with him that he does not have any collapse at this time. However, he is ulnar negative and does have some cystic changes in the lunate, so we will need to monitor this as an outpatient and likely send him on to a hand specialist for evaluation of this. 2. In regards to the extensor tendinitis and cubital tunnel syndrome, we will plan on getting the patient fitted with a wrist immobilizer. I think we should start him on a steroid Dosepak orally in order to help with inflammation and pain. I instructed on sleeping posture regarding the cubital tunnel. He has no signs of hypothenar atrophy at this time. I will plan on seeing him and treating him for these things as an outpatient. I do recommend getting him the wrist immobilizer and steroid Dosepak started as inpatient. He was given a copy of my card. He can follow up with me in the clinic in 1 to 2 weeks after discharge for further evaluation. I appreciate the consult. 3. Weightbearing as tolerated to the right upper extremity. 4. Appreciate hospitalist's recommendations. 5. DVT prophylaxis.
[2019-12-11] MEDS: VITAMIN B-12 SL SCH (08:00)
[2019-12-11] MEDS: LOPRESSOR PO SCH (08:00)
[2019-12-11] MEDS: LOVENOX SUBQ SCH (08:00)
[2019-12-11] MEDS: COZAAR PO SCH (08:00)
[2019-12-11] MEDS: PROTONIX PO SCH (08:00)
[2019-12-11] MEDS: LABETALOL IV PRN (08:10)
[2019-12-11] MEDS: TYLENOL PO PRN (08:15)
[2019-12-11 08:44] LABS: HEMATOCRIT 51.1 % (42.0-52.0); HEMOGLOBIN 17.1 g/dL (14.0-18.0); MCH 33.9 PG (27-31); MCHC 33.5 g/dL (33-37); MCV 101.4 FL (81-99); RBC 5.04 XMIL (4.7-6.1); RDW 12.4 % (11.5-14.5); WBC 4.82 X1000 (4.8-10.8)
--- NOTE | 2019-12-11 08:54 | Diag Imaging Result Doc PS360 ---
EXAM: CHEST-1 VIEW HISTORY: dyspnea TECHNIQUE: Single view COMPARISON: 12/10/2019 FINDINGS: The lungs are well expanded. The heart is mildly enlarged. The vessels are mildly distended. There are no infiltrates. No effusion identified. IMPRESSION: Cardiomegaly with persistent pulmonary edema Electronically signed by Vernon Acosta 12/11/2019 8:51 AM
[2019-12-11 09:17] LABS: MAGNESIUM 2.1 mg/dL (1.5-2.7); PHOSPHORUS 4.2 mg/dL (2.7-4.5)
[2019-12-11 09:19] LABS: AGAP 13; ALB/GLOB RATIO 1.2; ALBUMIN 3.8 g/dL (3.5-5.0); ALKALINE PHOSPHATASE 67 U/L (32-122); BUN 7 mg/dL (8-22); CALCIUM 8.6 mg/dL (8.8-10.2); CHLORIDE 98 mmol/L (98-107); COSMO 278; CREATININE 0.7 mg/dL (0.7-1.2); ESTIMATED GFR > 60; GLUCOSE 143 mg/dL (70-104); GOT 36 U/L (10-34); GPT 32 U/L (10-44); POTASSIUM 3.6 mmol/L (3.5-5.1); SODIUM 139 mmol/L (136-145); TCO2 28 mmol/L (25-35); TOTAL BILIRUBIN 1.36 mg/dL (0.20-1.00)
[2019-12-11] MEDS ORDERED: ZOFRAN IV PRN (10:47)
[2019-12-11] MEDS: ATIVAN IV PRN (11:25)
[2019-12-11] MEDS: M.V.I.-12 10 ML, FOLIC ACID 1 MG, MAGNESIUM SULFATE 1 GM, THIAMINE 100 MG in NS 1,000 ML IV SCH (11:25)
[2019-12-11] MEDS: NS 1,000 ML IV SCH ×2 (11:25→23:22)
--- NOTE | 2019-12-11 20:34 | PROGRESS NOTE ---
DATE: 12/11/2019 SUBJECTIVE: The patient is resting comfortably in bed. He started having diarrhea earlier today. OBJECTIVE: Vital Signs: Temperature 98 degrees, blood pressure 137/78, heart rate 63, respirations 12, O2 saturation is 97% on 2 L nasal cannula. General: This is a morbidly obese male, lying in bed in no acute distress. Heart: S1, S2 normal. Regular rate and rhythm. Lungs: Clear to auscultation bilaterally. Abdomen: Positive bowel sounds. Soft, obese, nontender, nondistended. Extremities: No edema. No cyanosis. Neurologic: The patient is awake, but lethargic. LABS: Sodium 139, potassium 3.6, chloride 98, CO2 of 28, BUN 7, creatinine 0.7, glucose 143. ASSESSMENT AND PLAN: 1. Alcohol withdrawal in the setting of alcohol dependence. The patient is on Librium. We will continue to monitor closely. 2. Erythrocytosis. We will continue to monitor the patient's hemoglobin and hematocrit closely. 3. Folate deficiency. The patient is currently getting replacement via the banana bag. 4. Vitamin B12. We will start the patient on B12 replacement. 5. Morbid obesity. Aware. 6. Hypertension. We will restart Lopressor and Cozaar. 7. Deep vein thrombosis prophylaxis. Continue on Lovenox. cc: Dominique Verdugo MD
[2019-12-12] MEDS: LIBRIUM PO SCH ×4 (02:22→20:59)
[2019-12-12] MEDS: PROTONIX PO SCH (06:30)
[2019-12-12 07:38] LABS: HEMATOCRIT 48.6 % (42.0-52.0); HEMOGLOBIN 16.2 g/dL (14.0-18.0); MCH 34.5 PG (27-31); MCHC 33.3 g/dL (33-37); MCV 103.6 FL (81-99); RBC 4.69 XMIL (4.7-6.1); RDW 12.4 % (11.5-14.5); WBC 4.94 X1000 (4.8-10.8)
[2019-12-12] MEDS: LOVENOX SUBQ SCH (08:08)
[2019-12-12] MEDS: LOPRESSOR PO SCH (08:08)
[2019-12-12] MEDS: COZAAR PO SCH (08:08)
[2019-12-12] MEDS: VITAMIN B-12 SL SCH (08:09)
[2019-12-12 08:11] LABS: AGAP 12; ALB/GLOB RATIO 1.2; ALBUMIN 3.5 g/dL (3.5-5.0); ALKALINE PHOSPHATASE 59 U/L (32-122); BUN 5 mg/dL (8-22); CALCIUM 8.5 mg/dL (8.8-10.2); CHLORIDE 103 mmol/L (98-107); COSMO 277; CREATININE 0.7 mg/dL (0.7-1.2); ESTIMATED GFR > 60; GLUCOSE 131 mg/dL (70-104); GOT 42 U/L (10-34); GPT 31 U/L (10-44); POTASSIUM 3.7 mmol/L (3.5-5.1); SODIUM 139 mmol/L (136-145); TCO2 24 mmol/L (25-35); TOTAL BILIRUBIN 1.06 mg/dL (0.20-1.00); TOTAL PROTEIN 6.4 g/dL (6.3-8.3)
[2019-12-12] MEDS: M.V.I.-12 10 ML, FOLIC ACID 1 MG, MAGNESIUM SULFATE 1 GM, THIAMINE 100 MG in NS 1,000 ML IV SCH (11:30)
--- NOTE | 2019-12-12 11:40 | Diag Imaging Result Doc PS360 ---
EXAM: CHEST-1 VIEW 12/12/2019 HISTORY: pulmonary edema TECHNIQUE: AP portable upright at 1107 COMMENT: There is cardiomegaly and increased pulmonary vascularity. Compared to 12/11/2019 there has been no significant change in the appearance the chest. IMPRESSION: Minimal interstitial pulmonary edema. Electronically signed by Josef Ramos 12/12/2019 11:38 AM
[2019-12-12] MEDS: ATIVAN IV PRN ×2 (11:47→21:00)
[2019-12-12] MEDS: LABETALOL IV PRN (16:21)
[2019-12-12] MEDS ORDERED: LASIX IV ONE (18:13)
--- NOTE | 2019-12-12 18:48 | PROGRESS NOTE ---
DATE: 12/12/2019 SUBJECTIVE: The patient is resting comfortably in bed. He states that he is starting to feel much better. He states that he lives in his car because he does not have a place to go. OBJECTIVE: Vital Signs: Temperature 97.6 degrees, blood pressure 151/92, heart rate 63, respirations 18, O2 saturation 97% on 2 L nasal cannula. General: This is a morbidly obese male lying in bed in no acute distress. Heart: S1, S2 normal. Regular rate and rhythm. Lungs: Equal air entry bilaterally. No wheezing. No rales. No rhonchi. Abdomen: Positive bowel sounds. Soft, nontender, nondistended. Extremities: No edema. No cyanosis. Neurologic: The patient is alert and oriented x3. LABS: White blood cell count 4.9, hemoglobin 16, hematocrit 48, platelets 119,000. Sodium 139, BUN 5, creatinine 0.7, glucose 131. ASSESSMENT AND PLAN: 1. Mild alcohol withdrawal. Continue on Librium. We will start to taper this. 2. Erythrocytosis. Slightly improved today. We will continue to monitor closely. 3. Acute pulmonary edema. We will order an echocardiogram to assess the patient's LV function. We will give the patient a dose of Lasix today. 4. Morbid obesity. Aware. 5. Hypertension. Continue on the current antihypertensive regimen. 6. History of gout. We will start the patient on allopurinol. 7. Alcohol dependence. The patient has a been counseled about cessation. 8. Vitamin B12 deficiency. Continue on vitamin B12 replacement. 9. Thrombocytopenia. We will monitor the platelet count closely. 10. 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 The patient will follow up with Dr. Aaron as outpatient to discuss further treatment. cc: Dominique Verdugo MD
[2019-12-13] MEDS: LIBRIUM PO SCH ×4 (02:07→23:35)
[2019-12-13] MEDS: PROTONIX PO SCH (06:18)
[2019-12-13] MEDS: FOLIC ACID PO SCH (08:01)
[2019-12-13] MEDS: ZYLOPRIM PO SCH (08:01)
[2019-12-13] MEDS: LOVENOX SUBQ SCH (08:01)
[2019-12-13] MEDS: LOPRESSOR PO SCH (08:01)
[2019-12-13] MEDS: VITAMIN B-12 SL SCH (08:01)
[2019-12-13] MEDS: COZAAR PO SCH (08:02)
[2019-12-13 08:35] LABS: HEMATOCRIT 50.7 % (42.0-52.0); HEMOGLOBIN 16.8 g/dL (14.0-18.0); MCH 34.4 PG (27-31); MCHC 33.1 g/dL (33-37); MCV 103.9 FL (81-99); MPV 11.4 FL (7.4-10.4); RBC 4.88 XMIL (4.7-6.1); RDW 12.4 % (11.5-14.5); WBC 4.99 X1000 (4.8-10.8)
[2019-12-13 08:47] LABS: HEMOGLOBIN A1C 5.9 % (4.8-6.0)
[2019-12-13 08:51] LABS: AGAP 9; BUN 7 mg/dL (8-22); CALCIUM 8.9 mg/dL (8.8-10.2); CHLORIDE 101 mmol/L (98-107); COSMO 279; CREATININE 0.7 mg/dL (0.7-1.2); ESTIMATED GFR > 60; GLUCOSE 121 mg/dL (70-104); POTASSIUM 3.5 mmol/L (3.5-5.1); SODIUM 140 mmol/L (136-145); TCO2 30 mmol/L (25-35)
[2019-12-13] MEDS: ATIVAN IV PRN (13:01)
--- NOTE | 2019-12-13 13:42 | ECHO REPORT ---
ORDER DATE: 12/13/2019 MEASUREMENTS: Septal thickness 1.2, left ventricular internal diameter in diastole 5.6, posterior wall thickness 1.1, aortic root 3.4, left atrium 4.0. SUMMARY: 1. Fair quality parasternal window with difficult apical window. Intravenous echocontrast agent, Optison, was utilized to enhance endocardial definition. 2. Aortic valve is trileaflet and opens normally on 2-dimensional images. The peak gradient across the aortic valve is less than 10 mmHg. Mitral and tricuspid valves are without evidence of structural abnormality, while pulmonic valve is not well demonstrated. There is trace tricuspid regurgitation. The estimated systolic PA pressure by Doppler is 38 mmHg. The aortic root is normal in size. 3. Normal left ventricular chamber size with borderline concentric left ventricular hypertrophy demonstrated. The estimated left ventricular ejection fraction appears to be at least 60%. There are no regional wall motion abnormalities evident. The left atrium is upper normal in size. The right atrium and right ventricle are normal in size with grossly preserved right ventricular systolic function. 4. No pericardial effusion. 5. Appearance of inferior vena cava suggests normal central venous pressure. cc: MD Dominique Purcell MD
--- NOTE | 2019-12-13 18:18 | PROGRESS NOTE ---
DATE: 12/13/2019 SUBJECTIVE: The patient is resting comfortably in bed. He has no complaints at this time. OBJECTIVE: Vital Signs: Temperature 98 degrees, blood pressure 155/94, heart rate 68, respirations 21, O2 saturation is 95% on 2 L nasal cannula. Intake 1.3 L, output 500 mL. General: This is a morbidly obese male lying in bed, in no acute distress. Heart: S1, S2 normal. Regular rate and rhythm. Lungs: Equal air entry bilaterally. No wheezing. No rales. Abdomen: Positive bowel sounds. Soft, nontender, nondistended. Extremities: No edema. No cyanosis. Neurologic: The patient is alert and oriented x3. LABORATORY DATA: White blood cell count 4.9, hemoglobin 16, hematocrit 50, platelets 123,000. Sodium 140, potassium 3.5, chloride 101, CO2 30, BUN 7, creatinine 0.7, glucose 121. ASSESSMENT AND PLAN: 1. Alcohol withdrawal. Improved. The patient has been counseled about alcohol cessation. 2. Acute pulmonary edema. Improved. 3. Acute on chronic diastolic CHF exacerbation. Continue on lasix and oxygen. 4. Morbid obesity. Aware. 5. History of gout. Continue on allopurinol. 6. Hypertension. Continue on the current antihypertensive regimen. 7. B12 deficiency. Continue with B12 replacement. 8. Folate deficiency. Continue with folic acid. 9. Deep vein thrombosis prophylaxis. Continue on Lovenox. 10. Disposition. The patient will likely be discharged home tomorrow. cc: Dominique Verdugo MD MTDD
[2019-12-14] MEDS: ATIVAN IV PRN ×4 (01:00→20:57)
[2019-12-14] MEDS: ATARAX PO PRN ×4 (01:00→20:57)
[2019-12-14] MEDS: PROTONIX PO SCH (06:57)
[2019-12-14] MEDS: LOVENOX SUBQ SCH (09:14)
[2019-12-14] MEDS: FOLIC ACID PO SCH (09:15)
[2019-12-14] MEDS: VITAMIN B-12 SL SCH (09:16)
[2019-12-14] MEDS: LIBRIUM PO SCH ×3 (09:16→20:57)
[2019-12-14] MEDS: LOPRESSOR PO SCH (09:16)
[2019-12-14] MEDS: ZYLOPRIM PO SCH (09:16)
[2019-12-14] MEDS: COZAAR PO SCH (09:16)
[2019-12-14] MEDS ORDERED: LASIX IV ONE (13:45)
[2019-12-14 16:33] LABS: ALLEN TEST YES; BE 3.8 mmoll (-3.0-3.0); BLOOD TYPE ARTERIAL; HCO3-(ACT) 27.7 mmoll (20.0-26.0); METHB 0.9 % (0.0-1.5); O2(CT) 23.3 mL/dL (15.0-23.0); O2HB 92.4 % (95.0-99.0); PO2(98.6) 64 mmHg (60-100); SAMPLE BLOOD; pH(98.6) 7.35 (7.35-7.45)
[2019-12-14 16:34] LABS: MODALITY CANNULA
[2019-12-14 16:36] LABS: PCO2(98.6) 57 mmHg (35-45)
--- NOTE | 2019-12-14 17:50 | PROGRESS NOTE ---
DATE: 12/14/2019 SUBJECTIVE: The patient is resting in bed. The patient was noted to have an O2 saturation of 88% on room air. He has been placed back on supplemental oxygen. OBJECTIVE: Vital Signs: Temperature 97.6 degrees, blood pressure 168/91, heart rate 68, respirations 18, O2 saturation 94% on 3 L nasal cannula. General: This is a morbidly obese male sitting in bed in no acute distress. Heart: S1, S2 normal. Regular rate and rhythm. Lungs: Diminished breath sounds bilaterally. Abdomen: Positive bowel sounds, soft, obese, nontender, nondistended. Extremities: No edema, no cyanosis, no calf tenderness. Neuro: The patient is alert and oriented x3. LABS: Hemoglobin 16, hematocrit 50, platelets 123,000. Sodium 140, potassium 3.5, chloride 101, CO2 30, BUN 7, creatinine 0.7. ASSESSMENT AND PLAN: 1. Alcohol withdrawal. The patient remains on a Librium taper. He has been counseled about alcohol cessation. 2. Acute pulmonary edema. Continue with diuretic therapy. 3. Acute on chronic diastolic congestive heart failure exacerbation. The patient has been started on aspirin. Will increase losartan dosage, continue with diuretic therapy and beta brent therapy. 4. Gout. Continue on allopurinol. 5. Morbid obesity. Aware. 6. Hypertension. Continue on Lopressor. The losartan dosage has been increased. 7. Suspected obstructive sleep apnea. Will refer the patient to a steel rule die maker as outpatient to undergo a sleep study. 8. Deep vein thrombosis prophylaxis. Continue on Lovenox. cc: Dominique Verdugo MD
[2019-12-15] MEDS: ATIVAN IV PRN ×5 (01:36→22:42)
[2019-12-15 07:28] LABS: HEMATOCRIT 53.5 % (42.0-52.0); HEMOGLOBIN 17.6 g/dL (14.0-18.0); MCH 33.6 PG (27-31); MCHC 32.9 g/dL (33-37); MCV 102.1 FL (81-99); MPV 10.8 FL (7.4-10.4); RBC 5.24 XMIL (4.7-6.1); RDW 12.2 % (11.5-14.5); WBC 6.39 X1000 (4.8-10.8)
[2019-12-15 08:04] LABS: AGAP 11; BUN 10 mg/dL (8-22); CALCIUM 9.3 mg/dL (8.8-10.2); CHLORIDE 99 mmol/L (98-107); COSMO 282; CREATININE 0.9 mg/dL (0.7-1.2); ESTIMATED GFR > 60; GLUCOSE 124 mg/dL (70-104); POTASSIUM 3.7 mmol/L (3.5-5.1); SODIUM 141 mmol/L (136-145); TCO2 31 mmol/L (25-35)
[2019-12-15] MEDS: ASPIRIN PO SCH (08:50)
[2019-12-15] MEDS: FOLIC ACID PO SCH (08:50)
[2019-12-15] MEDS: VITAMIN B-12 SL SCH (08:50)
[2019-12-15] MEDS: COZAAR PO SCH (08:50)
[2019-12-15] MEDS: ZYLOPRIM PO SCH (08:50)
[2019-12-15] MEDS: LOPRESSOR PO SCH (08:50)
[2019-12-15] MEDS: LIBRIUM PO SCH ×3 (08:50→20:58)
[2019-12-15] MEDS: LOVENOX SUBQ SCH (08:51)
[2019-12-15] MEDS: PROTONIX PO SCH (08:52)
[2019-12-15] MEDS ORDERED: LASIX PO SCH (09:00)
[2019-12-15] MEDS: ATARAX PO PRN (09:00)
--- NOTE | 2019-12-15 09:18 | Diag Imaging Result Doc PS360 ---
EXAM: CHEST-2 VIEWS HISTORY: pulmonary edema TECHNIQUE: Two views COMPARISON: 12/12/2019 FINDINGS: The lungs are well expanded. The heart is not enlarged. The vessels are distended. No consolidation. No pleural effusions. IMPRESSION: Persistent pulmonary edema Electronically signed by Vernon Acosta 12/15/2019 9:15 AM
--- NOTE | 2019-12-15 15:36 | PROGRESS NOTE ---
DATE: 12/15/2019 SUBJECTIVE: The patient is resting comfortably in bed. He has no complaints at this time. OBJECTIVE: Vital Signs: Temperature 97.6 degrees, blood pressure 121/69, heart rate 63, respirations 14, O2 saturation 95% on 2 L nasal cannula. General: This is a morbidly obese male lying in bed in no acute distress. Heart: S1, S2 normal. Regular rate and rhythm. Lungs: Equal air entry bilaterally. No wheezing. No rales. Abdomen: Positive bowel sounds. Soft, obese, nontender, nondistended. Extremities: No edema. No cyanosis. Neurologic: The patient is alert and oriented x4. LABS: Hemoglobin 17, hematocrit 53, platelets 120,000. BUN 10, creatinine 0.9, glucose 124. Chest x-ray shows pulmonary edema. ASSESSMENT AND PLAN: 1. Alcohol withdrawal. Improved. The patient is alert and oriented. Continue on the Librium taper. 2. Acute pulmonary edema. Resolved. 3. Chronic diastolic congestive heart failure. Continue on aspirin, losartan, and beta blockade therapy. 4. Erythrocytosis. This is likely secondary to CELSO. The patient will likely need a sleep study as outpatient. Serologies pending. 5. Morbid obesity. Aware. 6. Gout. Continue on allopurinol. 7. Suspected obstructive sleep apnea. Will need a sleep study as outpatient.. 8. 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 Follow up with Ortho as outpatient. 9. Deep vein thrombosis prophylaxis. Continue on Lovenox. cc: Dominique Verdugo MD MTDD
[2019-12-15] MEDS: MIRALAX PO SCH (20:57)
[2019-12-15] MEDS: LACTULOSE PO SCH (20:57)
[2019-12-15] MEDS ORDERED: LASIX IV SCH (21:00)
[2019-12-16] MEDS: ATIVAN IV PRN ×3 (02:56→10:29)
[2019-12-16] MEDS: ATARAX PO PRN (02:58)
[2019-12-16 05:23] LABS: ALLEN TEST YES; BE 3.6 mmoll (-3.0-3.0); BLOOD TYPE ARTERIAL; HCO3-(ACT) 27.5 mmoll (20.0-26.0); METHB 1.1 % (0.0-1.5); O2(CT) 23.4 mL/dL (15.0-23.0); O2HB 91.7 % (95.0-99.0); PO2(98.6) 65 mmHg (60-100); SAMPLE BLOOD; SAO2 94.8 % (95.0-100.0); THB 18.2 g/dL (11.5-17.4); pH(98.6) 7.37 (7.35-7.45)
[2019-12-16 05:32] LABS: MODALITY CANNULA
[2019-12-16 05:34] LABS: PCO2(98.6) 53 mmHg (35-45)
[2019-12-16] MEDS: PROTONIX PO SCH (06:28)
[2019-12-16 07:52] LABS: BASO# 0.03 X1000 (0.0-0.2); BASO% 0.5 % (0.0-0.8); EOS# 0.15 X1000 (0.0-0.7); EOS% 2.6 % (0.0-10.0); HEMATOCRIT 52.5 % (42.0-52.0); HEMOGLOBIN 17.4 g/dL (14.0-18.0); LYMPH# 2.25 X1000 (1.2-3.4); LYMPH% 38.7 % (20.5-51.1); MCH 33.7 PG (27-31); MCHC 33.1 g/dL (33-37); MCV 101.5 FL (81-99); MONO# 0.51 X1000 (0.11-0.59); MONO% 8.8 % (1.7-9.3); MPV 11.3 FL (7.4-10.4); NEUT# 2.88 X1000 (1.4-6.5); NEUT% 49.4 % (42.2-75.2); PLT 121 X1000 (130-400); RBC 5.17 XMIL (4.7-6.1); RDW 12.2 % (11.5-14.5); WBC 5.82 X1000 (4.8-10.8)
[2019-12-16 08:17] LABS: AGAP 11; BUN 7 mg/dL (8-22); CALCIUM 9.1 mg/dL (8.8-10.2); CHLORIDE 97 mmol/L (98-107); COSMO 274; CREATININE 0.7 mg/dL (0.7-1.2); ESTIMATED GFR > 60; GLUCOSE 138 mg/dL (70-104); POTASSIUM 3.4 mmol/L (3.5-5.1); SODIUM 137 mmol/L (136-145); TCO2 29 mmol/L (25-35)
[2019-12-16] MEDS: COZAAR PO SCH (08:40)
[2019-12-16] MEDS: LOVENOX SUBQ SCH (08:40)
[2019-12-16] MEDS: LIBRIUM PO SCH ×3 (08:40→20:27)
[2019-12-16] MEDS: FOLIC ACID PO SCH (08:40)
[2019-12-16] MEDS: ASPIRIN PO SCH (08:40)
[2019-12-16] MEDS: LOPRESSOR PO SCH (08:40)
[2019-12-16] MEDS: MIRALAX PO SCH ×2 (08:40→20:27)
[2019-12-16] MEDS: VITAMIN B-12 SL SCH (08:40)
[2019-12-16] MEDS: LACTULOSE PO SCH ×2 (08:41→20:27)
--- NOTE | 2019-12-16 09:17 | Diag Imaging Result Doc PS360 ---
EXAM: CT THORAX W/O CONTRAST - 12/15/2019 HISTORY: dyspnea TECHNIQUE: CT thorax without contrast. No contrast administered per request of the referring provider. COMPARISON: 10/21/2019 CT angiogram pulmonary arteries FINDINGS: There is mild peripheral pulmonary fibrosis/scarring similar to prior. There is no acute consolidation, gross pulmonary edema, pleural effusion, or pneumothorax identified. The soft tissues is distended with fluid similar to prior. There are no substantially enlarged mediastinal lymph nodes identified. IMPRESSION: Mild pulmonary fibrosis/scarring. No discrete pneumonia or pulmonary edema. The esophagus is distended with fluid similar to prior. The on-call radiologist provided preliminary results at 1:45 AM on 12/16/2019. This exam was performed using automated exposure control, adjustment of mA or kV according to patient size, and/or use of iterative reconstruction technique. Electronically signed by Mac Lew 12/16/2019 9:15 AM
[2019-12-16] MEDS ORDERED: KLOR-CON PO ONE (09:48)
[2019-12-16] MEDS: ZYLOPRIM PO SCH (10:19)
--- NOTE | 2019-12-16 10:40 | PROVIDER PROGRESS NOTE ---
Progress Note The patient has been seen and examined. A full dictation to follow.
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
--- NOTE | 2019-12-16 17:24 | PROGRESS NOTE ---
DATE: 12/16/2019 SUBJECTIVE: The patient is resting comfortably in bed, he leaves his oxygen off the majority of the time according to nursing staff, he has no complaints at this time. OBJECTIVE: Vital Signs: Temperature 97.4 degrees, blood pressure 134/89, heart rate 66, respirations 16, O2 saturations 95% on 2 L nasal cannula. Urine output 1.3 L. General: This is a morbidly obese male lying in bed in no acute distress. Heart: S1, S2 normal. Lungs: Equal air entry bilaterally. No wheezing, no rales. Abdomen: Positive bowel sounds. Soft, obese, nontender, nondistended. Extremities: No edema, no cyanosis, no calf tenderness. Neuro: The patient is alert and oriented x3. LAB: White blood cell count 5.8, hemoglobin 17, hematocrit 52, platelets 121,000. Sodium 137, potassium 3.4, chloride 97, CO2 29, BUN 7, creatinine 0.7. ASSESSMENT AND PLAN: 1. Alcohol withdrawal. Resolved. Continue on the Librium taper. 2. Acute pulmonary edema. Resolved. 3. Chronic diastolic congestive heart failure. Continue on aspirin, losartan and Lopressor. 4. Distended esophagus. The patient is scheduled to undergo a barium swallow tomorrow. The patient reports that he had an esophageal myotomy several years ago. 5. Gout. Continue on allopurinol. 6. Erythrocytosis. This is likely secondary to hypoxemia. An erythropoietin and JAK2 serology are currently pending. Will also consult with Hematology for further recommendations. 7. B12 deficiency. Continue with B12 replacement. 8. Folate deficiency. Continue with folic acid replacement. 9. Suspected obstructive sleep apnea. The patient will need a sleep study as outpatient. Pulmonary is following. 10. 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 The patient will follow up with Ortho as outpatient. 11. Morbid obesity. Aware. 12. Deep vein thrombosis prophylaxis. Continue on Lovenox. cc: Dominique Verdugo MD
[2019-12-16] MEDS: TYLENOL PO PRN (22:04)
[2019-12-17] MEDS: PROTONIX PO SCH (06:02)
[2019-12-17 07:45] LABS: BASO# 0.02 X1000 (0.0-0.2); BASO% 0.4 % (0.0-0.8); EOS# 0.16 X1000 (0.0-0.7); EOS% 2.9 % (0.0-10.0); HEMATOCRIT 52.4 % (42.0-52.0); HEMOGLOBIN 17.4 g/dL (14.0-18.0); IMM GRAN# 0.02 X1000 (0.0-0.04); IMM GRAN% 0.4 % (0.0-0.5); LYMPH# 2.11 X1000 (1.2-3.4); LYMPH% 38.2 % (20.5-51.1); MCH 33.9 PG (27-31); MCHC 33.2 g/dL (33-37); MCV 102.1 FL (81-99); MONO# 0.58 X1000 (0.11-0.59); MONO% 10.5 % (1.7-9.3); MPV 11.2 FL (7.4-10.4); NEUT# 2.64 X1000 (1.4-6.5); NEUT% 47.6 % (42.2-75.2); PLT 124 X1000 (130-400); RBC 5.13 XMIL (4.7-6.1); RDW 12.2 % (11.5-14.5); WBC 5.53 X1000 (4.8-10.8)
[2019-12-17 08:12] LABS: AGAP 10; BUN 6 mg/dL (8-22); CALCIUM 9.1 mg/dL (8.8-10.2); CHLORIDE 103 mmol/L (98-107); COSMO 284; CREATININE 0.7 mg/dL (0.7-1.2); ESTIMATED GFR > 60; GLUCOSE 118 mg/dL (70-104); POTASSIUM 4.1 mmol/L (3.5-5.1); SODIUM 143 mmol/L (136-145); TCO2 30 mmol/L (25-35)
[2019-12-17] MEDS: LACTULOSE PO SCH ×2 (08:48→21:29)
[2019-12-17] MEDS: LIBRIUM PO SCH ×3 (08:48→21:29)
[2019-12-17] MEDS: ZYLOPRIM PO SCH (08:48)
[2019-12-17] MEDS: LOVENOX SUBQ SCH (08:49)
[2019-12-17] MEDS: FOLIC ACID PO SCH (08:49)
[2019-12-17] MEDS: LOPRESSOR PO SCH (08:49)
[2019-12-17] MEDS: VITAMIN B-12 SL SCH (08:49)
[2019-12-17] MEDS: MIRALAX PO SCH ×2 (08:49→21:29)
[2019-12-17] MEDS: ASPIRIN PO SCH (08:49)
[2019-12-17] MEDS: COZAAR PO SCH (08:49)
--- NOTE | 2019-12-17 09:20 | Diag Imaging Result Doc PS360 ---
EXAM: BA SWALLOW-ESOPHAGUS INDICATION: dysphagia TECHNIQUE: Oral barium contrast was administered and the bolus was followed under fluoroscopy. Spot images were obtained in usual fashion. COMPARISON: None. FINDINGS: Upon swallowing, marked distention of the distal esophagus is noted with abrupt tapering near the GE junction consistent with achalasia. There was a marked delay of barium passing through the gastroesophageal junction and into the stomach. Finally, the barium was cleared from the lower esophagus by drinking water. No discrete esophageal strictures, filling defects, or ulcerations are identified, otherwise. IMPRESSION: Prominent dilation of the distal esophagus with marked delay of contrast passage into the stomach consistent with achalasia. Electronically signed by Phil Alvarado 12/17/2019 9:18 AM
--- NOTE | 2019-12-17 09:22 | PROVIDER PROGRESS NOTE ---
Progress Note Pulmonary: Will see PRN. Pls reconsult if needed.
[2019-12-17 14:26] LABS: RETIC% 1.22 % (0.8-2.1); RETIC-HE 35.5 PG (28.2-36.6)
--- NOTE | 2019-12-17 16:58 | PROGRESS NOTE ---
DATE: 12/17/2019 SUBJECTIVE: The patient is resting comfortably in bed. He states that he feels slightly short of breath this morning. OBJECTIVE: Vital Signs: Temperature 97.6 degrees, blood pressure 114/61, heart rate 59, respirations 20, O2 saturation 96% on 2 L nasal cannula. General: This is a morbidly obese male lying in bed in no acute distress. Heart: S1, S2 normal. Regular rate and rhythm. Lungs: Equal air entry bilaterally. No wheezing, no rales. Abdomen: Positive bowel sounds. Soft, obese, nontender, nondistended. Extremities: No edema, no cyanosis. Neuro: The patient is alert and oriented x3. LABS: White blood cell count 5.5, hemoglobin 17, hematocrit 52, platelets 124,000. Sodium 143, potassium 4.1, chloride 103, CO2 30, BUN 6, creatinine 0.7, glucose 118, calcium 9.1. Barium swallow reveals achalasia. ASSESSMENT AND PLAN: 1. Alcohol withdrawal. Resolved. Continue on Librium. 2. Acute pulmonary edema. Resolved. 3. Chronic diastolic congestive heart failure. Continue on aspirin, losartan, Lopressor. 4. Achalasia. The patient states that he had an esophageal myotomy several years ago. 5. Gout. Continue on allopurinol. 6. Erythrocytosis. An erythropoietin and JAK2 serology are currently pending. This is likely secondary to the patient's underlying hypoxemia. We will await further recommendations from the autocad designer. 7. Obstructive sleep apnea. The patient states that he never followed up for the sleep study. Pulmonary is following. 8. B12 deficiency. Continue on B12 replacement. 9. Folate deficiency. Continue on folic acid replacement. 10. 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 The patient will need to follow up with Dr. Aaron as outpatient. 11. Hypertension. Stable. 12. Constipation. Continue with laxative therapy. 13. Morbid obesity with BMI of 47. Aware. 14. Deep vein thrombosis prophylaxis. Continue with Lovenox. 15. Disposition. The patient will likely need home oxygen. Will request home O2 evaluation. The patient is currently homeless. [facility] is following. cc: Dominique Verdugo MD MTDD
[2019-12-17] MEDS: ATARAX PO PRN (21:30)
[2019-12-18] MEDS: ATARAX PO PRN ×4 (04:10→20:34)
[2019-12-18] MEDS: PROTONIX PO SCH (06:18)
[2019-12-18 07:48] LABS: BASO# 0.02 X1000 (0.0-0.2); BASO% 0.4 % (0.0-0.8); EOS# 0.12 X1000 (0.0-0.7); EOS% 2.3 % (0.0-10.0); HEMATOCRIT 50.9 % (42.0-52.0); HEMOGLOBIN 17.3 g/dL (14.0-18.0); LYMPH# 2.03 X1000 (1.2-3.4); LYMPH% 38.9 % (20.5-51.1); MONO# 0.57 X1000 (0.11-0.59); MONO% 10.9 % (1.7-9.3); MPV 10.8 FL (7.4-10.4); NEUT# 2.48 X1000 (1.4-6.5); NEUT% 47.5 % (42.2-75.2); PLT 118 X1000 (130-400); RBC 5.09 XMIL (4.7-6.1); RDW 12.1 % (11.5-14.5); WBC 5.22 X1000 (4.8-10.8)
[2019-12-18 08:27] LABS: AGAP 13; ALB/GLOB RATIO 1.1; ALBUMIN 3.6 g/dL (3.5-5.0); ALKALINE PHOSPHATASE 57 U/L (32-122); BUN 7 mg/dL (8-22); CALCIUM 9.5 mg/dL (8.8-10.2); CHLORIDE 101 mmol/L (98-107); COSMO 281; CREATININE 0.7 mg/dL (0.7-1.2); ESTIMATED GFR > 60; GLUCOSE 125 mg/dL (70-104); GOT 29 U/L (10-34); GPT 35 U/L (10-44); POTASSIUM 3.8 mmol/L (3.5-5.1); SODIUM 141 mmol/L (136-145); TCO2 27 mmol/L (25-35); TOTAL BILIRUBIN 0.91 mg/dL (0.20-1.00); TOTAL PROTEIN 6.9 g/dL (6.3-8.3)
[2019-12-18] MEDS: LOPRESSOR PO SCH (09:01)
[2019-12-18] MEDS: ASPIRIN PO SCH (09:01)
[2019-12-18] MEDS: COZAAR PO SCH (09:01)
[2019-12-18] MEDS: ZYLOPRIM PO SCH (09:01)
[2019-12-18] MEDS: LACTULOSE PO SCH ×2 (09:01→20:31)
[2019-12-18] MEDS: MIRALAX PO SCH ×2 (09:01→20:31)
[2019-12-18] MEDS: FOLIC ACID PO SCH (09:01)
[2019-12-18] MEDS: VITAMIN B-12 SL SCH (09:01)
[2019-12-18] MEDS: LIBRIUM PO SCH ×2 (09:01→13:39)
[2019-12-18] MEDS: LOVENOX SUBQ SCH (09:02)
--- NOTE | 2019-12-18 15:06 | PROGRESS NOTE ---
DATE: 12/18/2019 INTERVAL HISTORY: No acute events overnight. Mr. Genao is feeling better, he denies any chest pain or shortness of breath or cough. We discussed about his achalasia, need for outpatient GI followup, we discussed about smoking and alcohol cessation, we discussed about sleep apnea, answered all of his questions. VITALS: Temperature 98.1 degrees, pulse 62, respiratory 12, blood pressure 125/88 saturating 95% on 2 L nasal cannula. When I turned his oxygen down he was still saturating 93% on room air. PHYSICAL EXAMINATION: Morbidly obese not in acute distress. Oral cavity is moist. Air entry bilateral equal no wheeze or crackles. S1 normal no gallop or gallop. Abdomen: Soft, nontender. He had mild lower extremity edema. He was alert and oriented x3. LABS: Suggestive of WBC of 5.2, hemoglobin 17.3, platelet 118,000, BUN 7, creatinine 0.7, no positive microbiological data. No new imaging. Yesterday barium swallow x-ray had dilatation of distal esophagus with marked delay of contrast passage consistent with achalasia. ASSESSMENT AND PLAN: 1. Alcohol withdrawal with alcohol use disorder now resolved. I will decrease his Librium dose. 2. Acute hypoxic respiratory failure due to acute pulmonary edema: Now improving. I will decrease his O2 as tolerated. In future, I may consider Home O2 evaluation. 2. Essential hypertension and congestive heart failure with preserved ejection fraction. Continue home aspirin, metoprolol and losartan. 3. History of achalasia, patient did have esophageal manometry done several years ago, currently he denies any significant dysphagia and I advised him to have outpatient followup with regular physician and GI physician, he understood it. 4. Obstructive sleep apnea. He has never followed up for the sleep study. Pulmonology recommended outpatient followup, will monitor his oxygen saturation. 5. Others, continue vitamin B12, folic acid supplementation for deficiency, outpatient followup with orthopedic for chronic avascular necrosis of lunate on the right hand, laxative therapy for constipation which has resolved. DISPOSITION: I encouraged patient to call senior living home and accordingly I am planning discharge in next 24 hours. Plan of care discussed with him, his questions have been answered. cc: MD ANDRES Lakhani
[2019-12-18] MEDS ORDERED: LIBRIUM PO SCH (21:00)
[2019-12-19] MEDS: ATARAX PO PRN ×2 (02:34→08:11)
[2019-12-19] MEDS: PROTONIX PO SCH (06:25)
[2019-12-19 07:22] VITALS: BP 134/82
[2019-12-19] MEDS: COZAAR PO SCH (08:05)
[2019-12-19] MEDS: LOVENOX SUBQ SCH (08:05)
[2019-12-19] MEDS: ASPIRIN PO SCH (08:05)
[2019-12-19] MEDS: VITAMIN B-12 SL SCH (08:05)
[2019-12-19] MEDS: FOLIC ACID PO SCH (08:05)
[2019-12-19] MEDS: MIRALAX PO SCH (08:05)
[2019-12-19] MEDS: ZYLOPRIM PO SCH (08:05)
[2019-12-19] MEDS: LACTULOSE PO SCH (08:05)
[2019-12-19] MEDS: LOPRESSOR PO SCH (08:05)
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
== END 2019-12-19 12:34 | disposition home or self-care (01) | DRG 896 ==
LOC: ED 10:23 → SUATTDRO 16:27 → 3N 16:27
PROVIDERS: ATTEND Internal Medicine

== ENCOUNTER 2020-01-13 02:17 | Inpatient (IN) ==
[2020-01-13] MEDS ORDERED: ZOFRAN IV ONE (02:49)
[2020-01-13] MEDS ORDERED: NS 1,000 ML IV ONE (03:20)
--- NOTE | 2020-01-13 03:20 | PROVIDER DOCUMENTATION ---
HPI-Abdominal Pain/GI Problem - General Chief Complaint: Alcohol Withdrawal Stated Complaint: VOMITING Time Seen by Provider: 01/13/20 02:44 Source: patient, old records Allergies/Adverse Reactions: Patient Allergies Allergy/AdvReac Type Severity Reaction Status Date / Time No Known Allergies Allergy Verified 01/12/20 18:56 Home Medications: Home Medication List Medication Instructions Recorded Confirmed Last Taken Type Allopurinol [Zyloprim] 100 mg PO DAILY #30 tab 12/14/19 01/13/20 Unknown Rx Clonazepam 1 mg PO BID #20 12/14/19 01/13/20 Unknown Rx Folic Acid 1 mg PO DAILY #30 tab 12/14/19 01/13/20 Unknown Rx Metoprolol Tartrate [Lopressor] 100 mg PO DAILY #30 tab 12/14/19 01/13/20 Unknown Rx Losartan [Cozaar] 25 mg PO BID 01/05/20 01/13/20 Unknown History Buspirone HCl 25 mg PO BID 01/13/20 01/13/20 Unknown History - History of Present Illness-ABD Nature of Presenting Problems: Pt is a 49 y/o male who presents with nausea and vomiting, chest pain since yesterday. His abd had been hurting. The pt went to [facility] and was evaluated in the ER and discharged. The pt is homeless, lives in his car. After being discharged the pt came to [facility] ED as he wants to get help with his alcoholism. Pt was admitted in [facility] and treated for alcohol withdrawal 3-4 weeks ago and discharged. Pt relapsed on drinking again. Review of Systems - Adult - REVIEW OF SYSTEMS - ADULT Constitutional: denies: no symptoms reported Eyes: denies: no symptoms reported Ears, Nose, Mouth & Throat: denies: no symptoms reported Cardiovascular: reports: see HPI Respiratory: reports: see HPI Gastrointestinal: reports: see HPI Genitourinary: denies: no symptoms reported Musculoskeletal: denies: no symptoms reported Integumentary: denies: no symptoms reported Neurological: denies: no symptoms reported Psychiatric: denies: no symptoms reported Endocrine: denies: no symptoms reported Hematologic/Lymphatic: denies: no symptoms reported Allergic/Immunologic: denies: no symptoms reported Past History - Adult - PAST MEDICAL HISTORY-ADULT Review of Records: reports: Old Records Reviewed, Nursing Assessment Review, Medications Reviewed, Social history reviewed & non-contributory. Major Childhood Illnesses: reports: denies history Cardiovascular: reports: HTN Respiratory: reports: pneumonia, sleep apnea Gastrointestinal: reports: denies history Obstetrical/Gynecological: reports: denies history Genitourinary: reports: denies history Musculoskeletal: reports: chronic pain Neurological: reports: denies history Psychiatric: reports: anxiety (with panic attacks), depression Endocrine/Immune: reports: Diabetes Other Conditions: reports: denies history - PRIOR SURGERIES/PROCEDURES Surgical/Procedure History: reports: back/neck, other (disectomy; lap scope) - IMMUNIZATION STATUS Childhood Immunizations: See Nurse Assessment Flu Vaccine: See Nurse Assessment - FAMILY HISTORY Family History: reviewed, not pertinent Physical Exam-General - PHYSICAL EXAM-ADULT Initial Vital Signs Reviewed: Yes - CONSTITUTIONAL General Appearance: appears well, alert, no apparent distress - EYES Eyes: PERRL/EOMI - HEAD, EARS, NOSE, MOUTH & THROAT HENMT: normocephalic/atraumatic, moist mucous membranes, pharynx normal - NECK Neck: non-tender, supple - RESPIRATORY Respiratory: lungs clear, normal breath sounds, no respiratory distress, no accessory muscle use - CARDIOVASCULAR Cardiovascular: regular rate, rhythm, no murmur - GASTROINTESTINAL (ABDOMEN) Abdominal Exam: normal bowel sounds, non tender, soft - MUSCULOSKELETAL Back Exam: no CVA tenderness, no vertebral tenderness - SKIN Integumentary: normal color, warm/dry - NEUROLOGIC Neurologic: grossly normal - PSYCHIATRIC Psych/Mental Status: oriented x 3, anxious Progress - PLAN OF CARE/RESULTS Progress/Plan/Lab Results: Vital Signs - 8 hr 01/13/20 02:23 Temperature 98.4 F Pulse Rate 105 H Respiratory Rate 20 Blood Pressure 187/111 O2 Sat by Pulse Oximetry 98 Orders Category Date Time Status Ondansetron [Zofran] Med 01/13/20 02:49 Discontinued 4 mg IV NOW ONE Result Diagrams: 01/13/20 02:32 - REASSESSMENT Reassessment #1 Time Reassessed: 06:30 Status: unchanged (Pt continues to have nausea nad vomiting after zofran and reglan. will admit for obs.) - CONSULTS/PCP/HOSPITALIST Notification #1 *Consult/PCP/Hospitalist*: d/w Dr Villagran Time Discussed: 06:33 Consult Disposition: Admit (for observation) Departure - Departure Date of Disposition Decision: 01/13/20 Time of Disposition Decision: 06:37 DIAGNOSIS: Alcohol withdrawal, History of alcohol abuse, Intractable vomiting with nausea Disposition: ADMITTED INPATIENT 09 Certified Medical Emergency: Emergent Condition: Stable Referrals and Follow-Ups: None,PCP [Primary Care Provider] - - Critical Care Note This patient required my direct & personal management of CC.: No Attestation - Physician/ LAM Attestation Patient care was provided by Advanced Practice Provider:: No The physician spent face to face time with patient:: Yes Advanced Practice Provider documentation review:: Supervising physician onsite and consulted in the evaluation and care of this patient. The physician did have a face to face encounter with the patient.
[2020-01-13] MEDS ORDERED: REGLAN IV ONE (03:22)
[2020-01-13 04:12] LABS: AGAP 21; ALBUMIN 3.9 g/dL (3.5-5.0); ALKALINE PHOSPHATASE 81 U/L (32-122); BUN 11 mg/dL (8-22); CHLORIDE 95 mmol/L (98-107); COSMO 275; CREATININE 0.6 mg/dL (0.7-1.2); ESTIMATED GFR > 60; GLUCOSE 123 mg/dL (70-104); GOT 13 U/L (10-34); GPT 5 U/L (10-44); POTASSIUM 3.8 mmol/L (3.5-5.1); SODIUM 137 mmol/L (136-145); TCO2 22 mmol/L (25-35); TOTAL PROTEIN 7.1 g/dL (6.3-8.3)
[2020-01-13 05:30] LABS: UR AMPHETAMINES QUAL NONE DETECTED (NONE DETECT); UR BARBITUATES QUAL NONE DETECTED (NONE DETECT); UR BENZODIAZEPIN QUAL PRESUMPTIVE POSITIVE (NONE DETECT); UR CANNABINOIDS QUAL NONE DETECTED (NONE DETECT); UR COCAINE QUAL NONE DETECTED (NONE DETECT); UR METHADONE QUAL NONE DETECTED (NONE DETECT); UR METHAMPHETAMINE QUAL NONE DETECTED (NONE DETECT); UR OPIATES QUAL NONE DETECTED (NONE DETECT); UR OXYCODONE QUAL NONE DETECTED (NONE DETECT); UR PCP QUAL NONE DETECTED (NONE DETECT); UR PROPOXYPHENE QUAL NONE DETECTED (NONE DETECT); UR TCA QUAL NONE DETECTED (NONE DETECT)
[2020-01-13] MEDS ORDERED: BENTYL PO PRN (09:05)
[2020-01-13] MEDS ORDERED: TYLENOL PO PRN (09:05)
[2020-01-13] MEDS ORDERED: ATIVAN IV PRN (09:05)
[2020-01-13] MEDS ORDERED: ZOFRAN IV PRN (09:05)
[2020-01-13] MEDS ORDERED: ATARAX PO PRN (09:05)
[2020-01-13] MEDS ORDERED: M.V.I.-12 10 ML, FOLIC ACID 1 MG, MAGNESIUM SULFATE 1 GM, THIAMINE 100 MG in NS 1,000 ML IV ONE (09:05)
[2020-01-13] MEDS: ZYLOPRIM PO SCH (09:52)
[2020-01-13] MEDS: COZAAR PO SCH ×2 (09:52→21:30)
[2020-01-13] MEDS: FOLIC ACID PO SCH (09:52)
--- NOTE | 2020-01-13 10:03 | HISTORY AND PHYSICAL ---
PRIMARY CARE PROVIDER: None. CHIEF COMPLAINT: Alcohol withdrawal. HISTORY OF PRESENT ILLNESS: Mr. Genao is a 49-year-old, male, who was discharged from our service on 12/20/2019 for alcohol withdrawal and alcohol use disorder. He reports that after his discharge, he went back to drinking his normal fifth to a liter of whiskey per day. Other history of suspected sleep apnea, hypertension, congestive heart failure with preserved EF, achalasia without dysphagia, vitamin B12 and folic deficiency, anxiety, AV necrosis of the right hand, constipation, morbid obesity. Again, he reported since his last discharge, he went back to drinking his fifth of whiskey to liter per day. He reports that he does want to stop. He recently lost his mother at the end of last year, a continued stressor for him. His last drink was Tuesday morning around 2 or 3 a.m. He has been positive for nausea, vomiting, diarrhea yesterday afternoon, but none since then. He has had some chills and some diaphoresis. No fever. No cough. He reports no seizure activities with his prior withdrawals, but did have some hallucinations; currently not hallucinating. He is A and O x4. Answers questions and follows commands appropriately. Will admit him and start him on alcohol withdrawal protocol and p.r.n. Zofran for his nausea and vomiting, as well as some Ativan for any breakthrough agitation or seizures, daily banana bag. PAST MEDICAL HISTORY: Per HPI. PAST SURGICAL HISTORY: Bilateral carpal tunnel release, back surgery x2, laparoscopic esophageal surgery at the age of 14. SOCIAL HISTORY: Quit smoking over 20 years ago. He drinks a fifth to a liter of whiskey per day. Usual alcohol symptoms start about day 3. Continues to be currently homeless and living out of his car. FAMILY HISTORY: Mother and sister with congestive heart failure. Recently lost his mother, per his report, suddenly. ALLERGIES: No known drug allergies. HOME MEDICATIONS: He reports he is currently not taking any. REVIEW OF SYSTEMS: A 12-point review of systems was complete and negative, except for those mentioned in the HPI. He reports no recent travel. No sick contacts. No high- risk areas. No chest pain. No shortness of breath or palpitations. PHYSICAL EXAMINATION: VITAL SIGNS: Temperature is 98.1 degrees, heart rate 89, respirations 20, blood pressure 160/98, O2 is 93% on 3 L nasal cannula. GENERAL: Mr. Genao is a pleasant, 49-year-old, male, who is sitting up on the stretcher in no acute distress. HEENT: Atraumatic, normocephalic. PERRL. CARDIOVASCULAR: S1, S2 appreciated. No murmurs, gallops, or rubs noted. RESPIRATORY: Lung sounds are clear bilaterally. Bilaterally decreased in the bases. ABDOMEN: Obese, soft, nontender, nondistended. Positive bowel sounds x4 quadrants. LOWER EXTREMITIES: Trace lower extremity edema. Pedal pulses are palpable. LABORATORY AND DIAGNOSTIC DATA: Sodium 137, potassium 3.8, chloride 95, bicarb is 22, anion gap is 21, BUN 11, creatinine 0.6, blood glucose is 123, calcium is 8, total bilirubin 1.30, albumin is 3.9. Toxicology screen was positive for benzodiazepines. Diagnostic data done at [facility] showed cardiomegaly with pulmonary edema. His heart was prominent. The vessels are not distended. No pleural effusions or consolidation. ASSESSMENT AND PLAN: 1. Alcohol withdrawal with history of alcohol abuse. The patient was seen earlier at [facility] Emergency Department, was not treated for his alcohol withdrawal, and was called to come to [place] [facility] for treatment. He has continued with intractable nausea and vomiting. That has improved with some intravenous Zofran. We will place him on the floor on observation status, and place him on alcohol withdrawal protocol with a low-dose Librium taper and as needed medications. 2. Intractable nausea and vomiting, currently stable with Zofran. We will continue Zofran as needed. 3. Suspected obstructive sleep apnea. 4. Hypertension. Will continue home medications. 5. Congestive heart failure with preserved ejection fraction. His chest x-ray showed some cardiomegaly, but no distention or pleural effusions. Will monitor his fluid intake and output closely. Monitor him for any fluid volume overload. 6. Vitamin B12 and folate deficiencies. Will continue with multivitamin daily. 7. Anxiety. 8. Morbid obesity with a body mass index of 49. 9. High anion gap metabolic acidosis. Will continue with intravenous hydration. Dictated by JOSLYN Oliveira for Vivek Villagran MD cc: Vivek Villagran MD [facility]
[2020-01-13] MEDS: NS 1,000 ML IV SCH (10:27)
[2020-01-13] MEDS: LIBRIUM PO SCH ×2 (14:02→20:35)
--- NOTE | 2020-01-13 18:51 | HISTORY AND PHYSICAL ---
ADDENDUM: Patient presented to the hospital with nausea, vomiting, abdominal pain. States he is in alcohol withdrawal. We are going to admit to the hospital, place on Librium, and will follow. cc: Vivek Villagran MD
[2020-01-13] MEDS: ROBAXIN PO PRN (20:36)
[2020-01-14] MEDS: LIBRIUM PO SCH ×3 (01:45→16:11)
[2020-01-14] MEDS: ROBAXIN PO PRN ×2 (01:45→22:32)
[2020-01-14] MEDS: NS 1,000 ML IV SCH (05:41)
[2020-01-14 06:25] LABS: AGAP 10; ALBUMIN 3.3 g/dL (3.5-5.0); ALKALINE PHOSPHATASE 68 U/L (32-122); BUN 4 mg/dL (8-22); CALCIUM 7.8 mg/dL (8.8-10.2); CHLORIDE 98 mmol/L (98-107); COSMO 270; CREATININE 0.6 mg/dL (0.7-1.2); ESTIMATED GFR > 60; GLUCOSE 123 mg/dL (70-104); GOT 75 U/L (10-34); GPT 45 U/L (10-44); MAGNESIUM 1.9 mg/dL (1.5-2.7); SODIUM 136 mmol/L (136-145); TCO2 28 mmol/L (25-35); TOTAL PROTEIN 6.5 g/dL (6.3-8.3)
[2020-01-14] MEDS ORDERED: KLOR-CON PO ONE (07:19)
[2020-01-14] MEDS: ZYLOPRIM PO SCH (08:14)
[2020-01-14] MEDS: COZAAR PO SCH ×2 (08:14→20:00)
[2020-01-14] MEDS: LOPRESSOR PO SCH (08:14)
[2020-01-14] MEDS: FOLIC ACID PO SCH (08:14)
--- NOTE | 2020-01-14 20:17 | PROGRESS NOTE ---
DATE: 01/14/2020 SUBJECTIVE: Patient notes that he is feeling a little bit better. No tremors and no myalgias. Still having abdominal pain. PHYSICAL EXAMINATION: Vital signs: Temperature 98 degrees, pulse 118, respiratory rate 18, BP 137/79. General: Patient is awake, pleasant, in no distress. HEENT: Normocephalic. Neck: Supple. Cardiovascular: Regular rate. Chest: Clear. Abdomen: Soft. Extremities: Moves all extremities. ASSESSMENT: 1. Nausea and vomiting, resolved, although he currently is taking Zofran. 2. Sleep apnea. 3. Hypertension. 4. Alcohol withdrawal. 5. Congestive heart failure. 6. Morbid obesity. PLAN: We are going to continue patient in the hospital. Replace his hypokalemia. Continue to follow. Recheck in the a.m. Continue Librium taper. Continue counseling. Further orders as needed. cc: Vivek Villagran MD
[2020-01-15] MEDS: LIBRIUM PO SCH ×2 (03:38→07:51)
[2020-01-15 06:43] LABS: HEMOGLOBIN 15.7 g/dL (14.0-18.0); MCH 32.6 PG (27-31); MCHC 32.7 g/dL (33-37); MCV 99.8 FL (81-99); MPV 10.9 FL (7.4-10.4); RBC 4.81 XMIL (4.7-6.1); RDW 12.3 % (11.5-14.5); WBC 3.64 X1000 (4.8-10.8)
[2020-01-15 07:07] LABS: AGAP 11; ALBUMIN 3.4 g/dL (3.5-5.0); ALKALINE PHOSPHATASE 67 U/L (32-122); BUN 6 mg/dL (8-22); CALCIUM 8.2 mg/dL (8.8-10.2); CHLORIDE 103 mmol/L (98-107); COSMO 281; CREATININE 0.7 mg/dL (0.7-1.2); ESTIMATED GFR > 60; GLUCOSE 139 mg/dL (70-104); GOT 82 U/L (10-34); GPT 44 U/L (10-44); MAGNESIUM 2.1 mg/dL (1.5-2.7); POTASSIUM 3.4 mmol/L (3.5-5.1); SODIUM 141 mmol/L (136-145); TCO2 26 mmol/L (25-35); TOTAL PROTEIN 6.8 g/dL (6.3-8.3)
[2020-01-15 07:45] VITALS: BP 127/82
[2020-01-15] MEDS: LOPRESSOR PO SCH ×2 (07:50→08:10)
[2020-01-15] MEDS: FOLIC ACID PO SCH ×2 (07:51→08:10)
[2020-01-15] MEDS: COZAAR PO SCH ×2 (07:51→08:10)
[2020-01-15] MEDS: ZYLOPRIM PO SCH ×2 (07:51→08:10)
--- NOTE | 2020-01-15 17:42 | DISCHARGE SUMMARY ---
ADMISSION DATE: 01/13/2020 DISCHARGE DATE: 01/15/2020 PRIMARY CARE PHYSICIAN: None. ADMISSION DIAGNOSES: 1. Alcohol withdrawal with a history of alcohol abuse. 2. Intractable nausea and vomiting. 3. Suspected obstructive sleep apnea. 4. Hypertension. 5. Congestive heart failure with preserved ejection fraction. 6. Vitamin B12 and folate deficiencies. 7. Anxiety. 8. Morbid obesity with body mass index of 49. 9. High anion gap metabolic acidosis. DISCHARGE DIAGNOSES: 1. Nausea and vomiting, resolved. 2. Sleep apnea. 3. Hypertension. 4. Alcohol abuse. 5. Congestive heart failure with preserved ejection fraction. 6. Morbid obesity with a body mass index of 49.8. SUMMARY OF FINDINGS: This is a 49-year-old male who had been discharged from our service on 12/20/2019 for alcohol withdrawal and alcohol use disorder. Reports after his discharge, he went back to drinking his normal fifth of liter of whiskey per day and that he does want to stop. He recently lost his mother at the end of the year and it continued to be a stressor for him. His last drink was on Tuesday morning, around 2 or 3 a.m. He had positive nausea, vomiting, diarrhea on the day prior to arrival, but none on arrival. He was not having any seizure activity with his withdrawal. He has had some hallucinations in the past but none currently. He was alert and oriented x4. He was admitted, placed on alcohol withdrawal protocol with a low- dose Librium taper and p.r.n. Ativan. He has done well through his alcohol withdrawal. It is now felt that he can safely be discharged home. DISCHARGE MEDICATIONS: Zyloprim 100 mg p.o. daily, baclofen 10 mg p.o. t.i.d., buspirone 25 mg p.o. b.i.d., clonazepam 1 mg p.o. b.i.d. p.r.n., folic acid 1 mg p.o. daily, losartan 25 mg p.o. b.i.d. and metoprolol 100 mg p.o. daily. FOLLOWUP: He will follow up with his primary care physician in the next 1 to 2 weeks and call their office for an appointment. This is a 35 minute discharge. Dictated by JOSLYN Cramer for Christian Covarrubias MD Addendum: Patient seen and examined by myself. Agree with JOSLYN note. It reflects my assessment and plan. Patient is being discharged in stable condition. cc: JOSLYN Cramer MD Edwin K. Matthews, MD MTDD
== END 2020-01-15 13:53 | disposition home or self-care (01) | DRG 897 ==
LOC: P.ED 02:17 → P.MEDSURG 02:17 → OBSVTOIN 08:53 → SUATTDRO 08:53
PROVIDERS: ATTEND Internal Medicine